=== PATIENT | male | born 1935 | race Caucasian/White ===

== ENCOUNTER 2016-05-20 05:21 | Inpatient (IN) | payer MEDICARE ==
[2016-05-20 05:36] VITALS: RESP 16
--- NOTE | 2016-05-20 05:45 | ED ---
General Adult HPI - General Chief complaint: Dizziness Stated complaint: DIZZY Time Seen by Provider: 05/20/16 05:38 Source: patient, RN notes reviewed, old records reviewed Mode of arrival: EMS Limitations: no limitations - History of Present Illness Initial comments: This is a 72-year-old male presenting here today complaining of dizziness, weakness - Related Data Home Medications Medication Instructions Recorded Confirmed Aspirin [Adult Low Dose Aspirin EC] 81 mg PO 09/25/15 Atorvastatin [Lipitor] 20 mg PO DAILY 09/25/15 09/25/15 Ibuprofen [Motrin] 400 mg PO Q8HR PRN 09/25/15 09/25/15 Metoprolol Succinate [Toprol XL] 50 mg PO DAILY 09/25/15 09/25/15 amLODIPine [Norvasc] 10 mg PO DAILY 09/25/15 09/25/15 Previous Rx's Medication Instructions Recorded Dexamethasone 0.75 mg PO DAILY #12 tablet 09/25/15 Hydrocodone/Acetaminophen [[place] 1 each PO Q6HR PRN #30 tab 09/25/15 5-325] Allergies Allergy/AdvReac Type Severity Reaction Status Date / Time No Known Allergies Allergy Verified 09/25/15 15:59 Review of Systems ROS Statement: Those systems with pertinent positive or pertinent negative responses have been documented in the HPI. ROS Other: All systems not noted in ROS Statement are negative. Past Medical History Past Medical History: Cancer, Hypertension, Osteoarthritis (OA) History of Any Multi-Drug Resistant Organisms: None Reported Past Surgical History: Hernia Repair, Joint Replacement, Prostate Surgery Additional Past Surgical History / Comment(s): hip and knee Past Psychological History: No Psychological Hx Reported Smoking Status: Never smoker Past Alcohol Use History: Occasional Past Drug Use History: None Reported General Exam Limitations: no limitations General appearance: alert, in no apparent distress Head exam: Present: atraumatic, normocephalic, normal inspection Eye exam: Present: normal appearance, PERRL, EOMI. Absent: scleral icterus, conjunctival injection, periorbital swelling ENT exam: Present: normal exam, mucous membranes moist Neck exam: Present: normal inspection. Absent: tenderness, meningismus, lymphadenopathy Respiratory exam: Present: normal lung sounds bilaterally. Absent: respiratory distress, wheezes, rales, rhonchi, stridor Cardiovascular Exam: Present: regular rate, normal rhythm, normal heart sounds. Absent: systolic murmur, diastolic murmur, rubs, gallop, clicks GI/Abdominal exam: Present: soft, normal bowel sounds. Absent: distended, tenderness, guarding, rebound, rigid Extremities exam: Present: normal inspection, full ROM, normal capillary refill. Absent: tenderness, pedal edema, joint swelling, calf tenderness Back exam: Present: normal inspection Neurological exam: Present: alert, oriented X3, CN II-XII intact Psychiatric exam: Present: normal affect, normal mood Skin exam: Present: warm, dry, intact, normal color. Absent: rash Course Vital Signs 05/20/16 05/20/16 05:34 06:37 Temperature 97.9 F Pulse Rate 75 61 Respiratory 16 16 Rate Blood Pressure 129/79 124/59 O2 Sat by Pulse 94 L 95 Oximetry - Reevaluation(s) Reevaluation #1: 05/20/16 06:48 Patient attempted ambulation, unable to ambulate without severe dizziness tipping the side, patient unable to take one step by himself EKG Findings - EKG Comments: EKG Findings:: EKG shows no signs rhythm rate of 71, MS 150, QRS 08, QTC 434 Medical Decision Making - Medical Decision Making [facility] for evaluation of vertiginous symptoms, ataxia. Patient has normal CAT scan, normal cerebellar testing is ataxic on exam. Unable to walk. Patient will be admitted for neurological testing and evaluation, continued monitoring of ataxia - Lab Data Result diagrams: 05/20/16 06:00 05/20/16 06:00 Lab Results 05/20/16 05/20/16 05/20/16 Range/Units 06:00 06:00 06:00 WBC 9.5 (3.8-10.6) k/uL RBC 4.98 (4.30-5.90) m/uL Hgb 14.8 (13.0-17.5) gm/dL Hct 46.4 (39.0-53.0) % MCV 93.0 (80.0-100.0) fL MCH 29.8 (25.0-35.0) pg MCHC 32.0 (31.0-37.0) g/dL RDW 14.2 (11.5-15.5) % Plt Count 365 (150-450) k/uL Neutrophils % 70 % Lymphocytes % 11 % Monocytes % 11 % Eosinophils % 6 % Basophils % 1 % Neutrophils # 6.6 (1.3-7.7) k/uL Lymphocytes # 1.0 (1.0-4.8) k/uL Monocytes # 1.1 H (0-1.0) k/uL Eosinophils # 0.6 (0-0.7) k/uL Basophils # 0.1 (0-0.2) k/uL PT 11.0 (9.0-12.0) sec INR 1.1 (<1.1) APTT 25.8 (22.0-30.0) sec Sodium 143 (137-145) mmol/L Potassium 4.4 (3.5-5.1) mmol/L Chloride 104 (98-107) mmol/L Carbon Dioxide 27 (22-30) mmol/L Anion Gap 12 mmol/L BUN 24 H (9-20) mg/dL Creatinine 0.87 (0.66-1.25) mg/dL Est GFR (MDRD) Af Amer >60 (>60 ml/min/1.73 sqM) Est GFR (MDRD) Non-Af >60 (>60 ml/min/1.73 sqM) Glucose 113 H (74-99) mg/dL Calcium 9.8 (8.4-10.2) mg/dL Phosphorus 3.2 (2.5-4.5) mg/dL Magnesium 1.9 (1.6-2.3) mg/dL Total Bilirubin 0.9 (0.2-1.3) mg/dL AST 23 (17-59) U/L ALT 28 (21-72) U/L Alkaline Phosphatase 89 (38-126) U/L Total Protein 7.7 (6.3-8.2) g/dL Albumin 4.3 (3.5-5.0) g/dL - Radiology Data Radiology results: report reviewed (CT brain is negative for acute disease), image reviewed Disposition Clinical Impression: Cerebrovascular accident, Ataxia Disposition: ADMITTED IP TO THIS [facility] Condition: Serious Referrals: Amanda Saldana DO [Primary Care Provider] - 1-2 days
[2016-05-20] MEDS ORDERED: ONDANSETRON 4 MG/2 ML VIAL IVP STA (05:50)
[2016-05-20] MEDS ORDERED: SODIUM CHLORIDE 0.9% 1,000 ML IV STA (05:50)
[2016-05-20] MEDS ORDERED: DIAZEPAM 5 MG/ML 2 ML SYRINGE IVP STA (05:51)
[2016-05-20 06:23] LABS: Basophils # (A) 0.1 k/uL (0-0.2); Basophils % (A) 1 %; CH 29.9; CHCM 32.3; Eosinophils # (A) 0.6 k/uL (0-0.7); Eosinophils % (A) 6 %; HCT 46.4 % (39.0-53.0); HDW 2.22; HGB 14.8 gm/dL (13.0-17.5); Luc # (Auto) 0.19; Luc % (Auto) 2; Lymphocytes % (A) 11 %; MCH 29.8 pg (25.0-35.0); Mean Platelet Volume 7.4; Monocytes # (A) 1.1 k/uL (0-1.0); Monocytes % (A) 11 %; Neutrophils # (A) 6.6 k/uL (1.3-7.7); Neutrophils % (A) 70 %; RBC 4.98 m/uL (4.30-5.90); RDW 14.2 % (11.5-15.5); WBC 9.5 k/uL (3.8-10.6); WBC (Perox) 9.14
[2016-05-20 06:32] LABS: ALT 28 U/L (21-72); AST 23 U/L (17-59); Alkaline Phosphatase 89 U/L (38-126); Anion Gap 12 mmol/L; Blood Urea Nitrogen 24 mg/dL (9-20); Calcium 9.8 mg/dL (8.4-10.2); Carbon Dioxide 27 mmol/L (22-30); Chloride 104 mmol/L (98-107); Glucose 113 mg/dL (74-99); Magnesium 1.9 mg/dL (1.6-2.3); Non-African American GFR(MDRD) >60 (>60 ml/min/1.73 sqM); Phosphorous 3.2 mg/dL (2.5-4.5); Potassium 4.4 mmol/L (3.5-5.1); Sodium 143 mmol/L (137-145); Total Bilirubin 0.9 mg/dL (0.2-1.3); Total Protein 7.7 g/dL (6.3-8.2)
[2016-05-20 06:33] LABS: INR 1.1 (<1.1); Partial Thromboplastin Time 25.8 sec (22.0-30.0)
--- NOTE | 2016-05-20 06:35 | CT ---
EXAM: CT Head Without Intravenous Contrast. CLINICAL HISTORY: Reason: weakness TECHNIQUE: Axial computed tomography images of the head/brain without intravenous contrast. CTDI is 57.40 mGy and DLP is 1064.30 mGy-cm This CT exam was performed using one or more of the following dose reduction techniques: automated exposure control, adjustment of the mA and/or kV according to patient size, and/or use of iterative reconstruction technique. COMPARISON: No relevant prior studies available. FINDINGS: Brain: Mild generalized atrophy. Minimal presumed chronic small vessel ischemic changes in the periventricular white matter. No hemorrhage. Ventricles: Unremarkable. No ventriculomegaly. Bones/joints: No acute fracture. Vasculature: Intracranial atherosclerosis. While subtle, there appears to be mild relative prominence of the right cavernous ICA compared to the left, with perhaps slight asymmetry and/or smooth remodeling of the right side of the clivus (for example axial images 20 and 21). Sinuses: Unremarkable as visualized. No acute sinusitis. Mastoid air cells: Unremarkable as visualized. No mastoid effusion. IMPRESSION: 1. No acute intracranial abnormality or etiology of the patient's weakness detected. 2. Mild relative fullness of the right cavernous sinus compared to the left. While this may be related to vascular ectasia, an aneurysm or small juxtasellar lesion, e.g. an underlying adenoma or meningioma, is not entirely excluded either. This could be further assessed by sella protocol MRI without and with contrast and MRA, on a follow-up basis, if not previously known.
[2016-05-20] MEDS ORDERED: ASPIRIN 325 MG TAB PO STA (06:44)
[2016-05-20 06:55] LABS: Appearance,Urine Clear (Clear); Bilirubin,Urine Negative (Negative); Glucose,Urine (UA) Negative (Negative); Ketones,Urine Negative (Negative); Leukocyte Esterase,Urine Negative (Negative); Nitrite,Urine Negative (Negative); PH, Urine 5.5 (5.0-8.0); Protein,Urine Negative (Negative); Specific Gravity,Urine 1.013 (1.001-1.035); UA Billing (MACRO vs. MICRO) CHEM; Urobilinogen,Urine <2.0 mg/dL (<2.0)
[2016-05-20 07:02] LABS: Creatine Kinase 54 U/L (55-170)
[2016-05-20 07:15] LABS: Creatine Kinase MB 1.4 ng/mL (0.0-2.4); Troponin I <0.012 ng/mL (0.000-0.034)
--- NOTE | 2016-05-20 09:01 | US ---
EXAMINATION TYPE: US carotid duplex BILAT DATE OF EXAM: 05/20/2016 8:27 AM COMPARISON: NONE CLINICAL HISTORY: 80-year-old male evaluate for Stenosis. Dizziness per patient, unable to stand. TECHNIQUE: Duplex carotid ultrasound. Indirect Doppler criteria was utilized. FINDINGS: There is moderate atherosclerotic change at both bifurcations. EXAM MEASUREMENTS: RIGHT: Peak Systolic Velocity (PSV) cm/sec ----- Right CCA: 83.4 ----- Right ICA: 96.6 ----- Right ECA: 107.3 ICA/CCA ratio: 1.2 RIGHT: End Diastole cm/sec ----- Right CCA: 21.9 ----- Right ICA: 16.4 ----- Right ECA: 8.9 LEFT: Peak Systolic Velocity (PSV) cm/sec ----- Left CCA: 100.4 ----- Left ICA: 91.1 ----- Left ECA: 112.9 ICA/CCA ratio: 0.9 LEFT: End Diastole cm/sec ----- Left CCA: 19.7 ----- Left ICA: 24.1 ----- Left ECA: 12.8 VERTEBRALS (direction of flow): Right Vertebral: Antegrade Left Vertebral: Antegrade IMPRESSION: No hemodynamically significant stenosis appreciated in either internal carotid artery. Criteria for Assigning % of Stenosis / Diameter reduction (Estimation based on the indirect measurements of the internal carotid artery velocities (ICA PSV). 1. Normal (no stenosis)=ICA PSV < 125 cm/s: ratio < 2.0: ICA EDV<40 cm/s. 2. Less than 50% stenosis=ICA PSV < 125 cm/s: ratio < 2.0: ICA EDV<40 cm/s. 3. 50 to 69% stenosis=ICA PSV of 125 to 230 cm/s: ration 2.0 ? 4.0: ICA EDV 40-100 cm/s. 4. Greater than 70% stenosis to near occlusion= ICA PSV > 230 cm/s: ratio > 4.0: ICA EDV > 100 cm/s. 5. Near occlusion= ICA PSV velocities may be low or undetectable: variable ratio and ICA EDV. 6. Total occlusion=unable to detect flow.
[2016-05-20] MEDS: SODIUM CHLORIDE 0.9% 1,000 ML IV SCH ×2 (09:33→18:12)
[2016-05-20 09:38] VITALS: TEMP 96.4
[2016-05-20] MEDS ORDERED: DIAZEPAM 5 MG TAB PO STA ×2 (10:02→10:04)
[2016-05-20] MEDS ORDERED: MECLIZINE 25 MG TAB PO PRN (10:02)
[2016-05-20] MEDS ORDERED: methylPREDNISolone SOD SUCCI 125 MG/2 ML VIAL IV STA (10:12)
[2016-05-20] MEDS ORDERED: amLODIPine 10 MG TAB PO SCH (10:30)
[2016-05-20] MEDS ORDERED: METOPROLOL SUCCINATE (ER) 50 MG TAB.ER.24H PO SCH ×2 (10:30→21:00)
[2016-05-20 11:23] LABS: Glucose,Whole Blood 124 mg/dL (75-99)
[2016-05-20 11:28] VITALS: BMI 27.8
[2016-05-20] MEDS: INSULIN LISPRO (humaLOG) 300 UNIT/3 ML VIAL SQ SCH ×2 (12:50→18:24)
--- NOTE | 2016-05-20 12:53 | P.CONS ---
<Rashmi Tovar - Last Filed: 05/20/16 12:57> History of Present Illness - Reason for Consult Consult date: 05/20/16 Dizziness - History of Present Illness This is a 80-year-old male patient of Dr. Saldana with a past mental history of prostate cancer status post resection, hypertension, osteoarthritis. He last saw Dr. Saldana 2 months ago for medication refills. He denies any new medications. Patient states he has had dizziness that will come and go and usually lasts about one day but this time he has had it on 4 days and continues to worsen. He has had a evaluation before thought it was vertigo. He denies any lower or upper extremity weakness, headache, chest pain, double vision. He states that he couldn't stand and could not get to the bathroom. He states his dizziness even when he moves his head forward while he is sitting. He denies any other complaints and states he feels "awesome" if it were not for the dizziness. He underwent a CAT scan of the brain that showed no acute intracranial abnormality. Mild fullness of the right cavernous sinuses compared to the left. This may be related to vascular ectasia, and aneurysm or small juxtasellar lesion such as underlying adenoma or meningioma is not entirely excluded. Carotid ultrasound showed no hemodynamically significant stenosis. Patient was admitted to the selective care unit. MRI/MRA of the brain have been ordered and consult with neurology. Review of Systems All systems: negative Constitutional: Denies anorexia, Denies chills, Denies fatigue, Denies fever, Denies lethargy, Denies malaise, Denies night sweats, Denies poor appetite, Denies sweats, Denies weakness, Denies weight gain, Denies weight loss Eyes: right decreased vision, denies blurred vision, denies pain Ears, nose, mouth and throat: Reports vertigo, Denies dental pain, Denies dysphagia, Denies headache, Denies mouth pain, Denies sinus pain, Denies sore throat Cardiovascular: Denies chest pain, Denies decreased exercise tolerance, Denies dyspnea on exertion, Denies edema, Denies leg edema, Denies lightheadedness, Denies shortness of breath, Denies syncope Respiratory: Denies cough, Denies cough with sputum, Denies dyspnea, Denies excessive sputum, Denies hemoptysis, Denies home oxygen, Denies wheezing Gastrointestinal: Denies abdominal pain, Denies change in bowel habits, Denies diarrhea, Denies hematemesis, Denies hematochezia, Denies loss of appetite, Denies melena, Denies nausea, Denies vomiting Genitourinary: Denies dysuria, Denies hematuria, Denies urinary frequency Musculoskeletal: Denies muscle weakness, Denies myalgias Integumentary: Denies pruritus, Denies rash Neurological: Denies numbness, Denies weakness Psychiatric: Denies anxiety, Denies depression Endocrine: Denies fatigue, Denies weight change Past Medical History Past Medical History: Cancer, Hyperlipidemia, Hypertension, Osteoarthritis (OA) Additional Past Medical History / Comment(s): Prostate cancer status post resection History of Any Multi-Drug Resistant Organisms: None Reported Past Surgical History: Hernia Repair, Joint Replacement, Prostate Surgery Additional Past Surgical History / Comment(s): Left hip and left knee arthroplasty, bilateral inguinal hernia repair, prostate resection for cancer, bilateral cataract removal and intraocular lens implants Past Anesthesia/Blood Transfusion Reactions: No Reported Reaction Past Psychological History: No Psychological Hx Reported Smoking Status: Never smoker Past Alcohol Use History: Occasional Additional Past Alcohol Use History / Comment(s): Patient is a lifelong nonsmoker. No medical marijuana, marijuana, street drug use. He occasionally has a beer or mixed drink. He lives at home with his . He does not have any DME in the home. Past Drug Use History: None Reported - Past Family History Father Family Medical History: COPD Additional Family Medical History / Comment(s): Father at age 76 from a brain hemorrhage. Mother Additional Family Medical History / Comment(s): Mother at age 82 from liver disease. Brother(s) Additional Family Medical History / Comment(s): He has one brother with history of bladder cancer Sister(s) Additional Family Medical History / Comment(s): He has 2 sisters. One from brain aneurysm and one with history of heart problems with the pacemaker. Son(s) Additional Family Medical History / Comment(s): Patient has 3 sons and one daughter with no major medical problems. Medications and Allergies Home Medications Medication Instructions Recorded Confirmed Type Aspirin [Adult Low Dose Aspirin EC] 81 mg PO DAILY 09/25/15 05/20/16 History Atorvastatin [Lipitor] 20 mg PO HS 09/25/15 05/20/16 History Ibuprofen [Motrin] 400 mg PO Q8HR PRN 09/25/15 05/20/16 History Metoprolol Succinate [Toprol XL] 50 mg PO HS 09/25/15 05/20/16 History amLODIPine [Norvasc] 10 mg PO DAILY 09/25/15 05/20/16 History ALPRAZolam [Xanax] 0.5 mg PO DAILY PRN 05/20/16 05/20/16 History Multivitamin [Men's Multi-Vitamin] 1 tab PO DAILY 05/20/16 05/20/16 History Allergies Allergy/AdvReac Type Severity Reaction Status Date / Time No Known Allergies Allergy Verified 05/20/16 12:27 Physical Exam Vitals: Vital Signs Temp Pulse BP Pulse Ox 05/20/16 07:44 96.4 F L 72 144/70 99 Intake and Output 05/19/16 05/20/16 05/20/16 22:59 06:59 14:59 Other: Weight 92.986 kg Patient Weight 05/21/16 06:59 Weight 92.986 kg Gen: This is a 80-year-old male. He is sitting up in a bed and appears to be in no acute distress. He does have significant difficulty with ambulating due to dizziness. Gait is unsteady. HEENT: Head is atraumatic, normocephalic. Pupils equal, round. Sclerae is anicteric. NECK: Supple. No JVD. No lymphadenopathy. No thyromegaly. LUNGS: Clear to auscultation. No wheezes or rhonchi. No intercostal retractions. HEART: Regular rate and rhythm. No murmur. ABDOMEN: Soft. Bowel sounds are present. No masses. No tenderness. EXTREMITIES: No pedal edema. No calf tenderness. NEUROLOGICAL: Patient is awake, alert and oriented x3. Cranial nerves 2 through 12 are grossly intact. Results CBC & Chem 7: 05/20/16 06:00 05/20/16 06:00 Labs: Abnormal Lab Results - Last 24 Hours (Table) 05/20/16 Range/Units 11:17 POC Glucose (mg/dL) 124 H (75-99) mg/dL Assessment and Plan Plan: 1. Dizziness, possible vertigo with abnormal finding on brain CAT scan. MRI/ MRA of the brain have been ordered. Consult with neurology. Continue aspirin 325 mg daily. Solu-Medrol 125 mg 1 and then 60 mg every 6 hours. Meclizine 25 mg 3 times daily as needed ordered. 2. Hypertension. Continue amlodipine 10 mg daily. 3. Hyperlipidemia. Continue Lipitor 20 mg at bedtime. 4. Gastrointestinal prophylaxis. Pepcid. 5. DVT prophylaxis. Lovenox. 6. History of prostate cancer, stable. Patient will be admitted to the hospital for a minimum of 2 night stay. Discharge plan: Return home Impression and plan of care have been directed as dictated by the signing physician. Rashmi Tovar nurse practitioner acting as scribe for signing physician. CC: Dr. Amanda Saldana Time with Patient: Greater than 30 <Genny Ratliff - Last Filed: 05/27/16 15:04> History of Present Illness - History of Present Illness addendum: patient was transfered to [facility] neurology service for cavernous sinus lesion seen on mri with symtpoms of ataxia with nystagmus, vestibular pathlology is not high on the differential making Dr Chacon suspicious about this lesion, neurosurgeon at [facility] will be consulted on transfer there for higher level of care Results CBC & Chem 7: 05/20/16 06:00 05/20/16 06:00 Assessment and Plan Plan: transfered to [facility], NEUROLOGY SERVICE WITH CONSULT TO NEUROSURGEON CAVERNOUS SINUS LESION WITH ATAXIA. SEE AVOBE
--- NOTE | 2016-05-20 12:54 | MR ---
EXAMINATION TYPE: MR brain wo/w con, MR angio head wo con DATE OF EXAM: 05/20/2016 12:11 PM COMPARISON: NONE HISTORY: 80-year-old male Weakness, dizziness TECHNIQUE: Multiplanar, multisequence images of the brain and brainstem were acquired before and aft er administration of 18 ml IV MultiHance. Diffusion weighted imaging was performed. Additional high -resolution 3-D [id number] imaging of the [place] was performed. Rotational 3-D reconst ructions were generated on a dedicated independent workstation. FINDINGS: MRI: No evidence for acute infarction, hemorrhage, mass, mass effect, midline shift, herniation, effacemen t of basal cisterns, or extra-axial fluid collection. There is mild generalized supratentorial volume loss. Major intracranial flow voids are intact. T2/FLAIR weighted sequences show mild scattered periventricular and deep white matter bright signal f oci, nonspecific, likely relating to chronic small vessel ischemic disease. Midline structures demonstrate normal morphology. No sellar or suprasellar lesion is seen. The crani ocervical junction is normal. Post contrast images demonstrate no evidence of pathologic enhancement. Mild mucosal thickening ethmoid air cells. Partial opacification of anterior mastoid air cells on bot h sides likely retained secretions. MRA: There is asymmetric ectasia and tortuosity of the right intracranial ICA at the junction of the lacer um and cavernous portions with a diameter of 7 mm versus 5 mm on the contralateral side. This appears to account for the asymmetric cavernous sinus fullness seen on CT. Otherwise, no aneurysm, significant stenosis, or arterial occlusion is seen. IMPRESSION: 1. No acute intracranial abnormality seen. 2. Mild atrophy and mild nonspecific scattered T2 bright white matter change, likely representing mil d burden of chronic small vessel ischemic disease. 3. Asymmetric ectasia and tortuosity of the right intracranial ICA at the junction of the lacerum and cavernous portions with a diameter of 7 mm. This appears to account for the asymmetric cavernous sin us fullness seen on CT. A 12 month follow-up MRA can be considered to reassess. Otherwise, no aneurys m or parasellar mass.
--- NOTE | 2016-05-20 15:13 | ECHOF ---
Referral Reason:Thrombus MEASUREMENTS -------- HEIGHT: 180.3 cm WEIGHT: 93.0 kg BP: 124/59 IVSd: 1.2 cm (0.6 - 1.1) LVIDd: 4.0 cm (3.9 - 5.3) LVPWd: 1.0 cm (0.6 - 1.1) IVSs: 1.7 cm LVIDs: 2.1 cm LVPWs: 2.2 cm Ao Diam: 3.8 cm (2.0 - 3.7) AV Cusp: 1.9 cm (1.5 - 2.6) LA Diam: 4.5 cm (2.7 - 3.8) MV EXCURSION: 16.312 mm (> 18.000) MV EF SLOPE: 93 mm/s (70 - 150) EPSS: 1.0 cm MV E Slava: 0.77 m/s MV DecT: 304 ms MV A Slava: 0.74 m/s MV E/A Ratio: 1.04 RAP: 5.00 mmHg RVSP: 11.07 mmHg FINDINGS -------- Sinus rhythm. This was a technically adequate study. There is borderline concentric left ventricular hypertrophy. Overall left ventricular systolic function is normal with, an EF between 55 - 60 %. The right ventricle is normal in size and function. The left atrium is mildly dilated. The right atrium is normal in size. Aortic valve is trileaflet and is mildly thickened. The mitral valve leaflets are mildly thickened. Mild mitral regurgitation is present. Mild tricuspid regurgitation present. The right ventricular systolic pressure, as measured by Doppler, is 11.07mmHg. Pulmonic valve appears structurally normal. The aortic root size is normal. The pericardium is normal. CONCLUSIONS -------- 1. Sinus rhythm. 2. Mild mitral regurgitation is present. 3. Mild tricuspid regurgitation present. 4. The right ventricular systolic pressure, as measured by Doppler, is 11.07mmHg. 5. Pulmonic valve appears structurally normal. 6. The aortic root size is normal. 7. The pericardium is normal. 8. This was a technically adequate study. 9. There is borderline concentric left ventricular hypertrophy. 10. Overall left ventricular systolic function is normal with, an EF between 55 - 60 %. 11. The right ventricle is normal in size and function. 12. The left atrium is mildly dilated. 13. The right atrium is normal in size. 14. Aortic valve is trileaflet and is mildly thickened. 15. The mitral valve leaflets are mildly thickened. [employer] ARCHITECT: Zoe Whittaker RDCS
[2016-05-20 16:18] VITALS: BP 150/72; PULSE 118
[2016-05-20 16:26] LABS: Glucose,Whole Blood 156 mg/dL (75-99)
[2016-05-20] MEDS ORDERED: methylPREDNISolone SOD SUCCI 125 MG/2 ML VIAL IV SCH (17:00)
--- NOTE | 2016-05-20 18:49 | P.CNNES ---
History of Present Illness Consult date: 05/20/16 Reason for Consult: Patient admitted with dizziness and gait ataxia. History of Present Illness: This patient is a 80-year-old right-handed white male who was brought in today by EMS to the emergency room at [facility] for evaluation of extreme vertigo and gait ataxia. According to the patient his symptoms of vertigo started 4 days ago. He has a history of recurrent vertigo for the past 2 years and the symptoms usually subside after one to 2 days. He does not have to take any specific medication for these episodes. According to his who is at bedside he experiences 3 or 4 episodes a year. 4 days ago his symptoms began in which she felt vertiginous and off balance. He just did not feel well. This morning at 4 AM he awoke and could not get out of bed. His tried to assist him to sit on the side of the bed and he had a fall back into bed due to severe symptoms of vertigo. He states that he was off balance and did have some true spinning vertigo as well. He had some nausea but no vomiting. The tried again to get a monitor bed but was unsuccessful. The immediately called EMS who arrived and brought him to the emergency room at [facility] for evaluation. He was seen in the ER by Dr. Garza we evaluated him. He was advised to undergo a computed tomography scan of the brain which was completed. Due to the severity of his symptoms and unsteadiness he was given 1 dose of Valium in the ER. He underwent computed tomography scan of the brain which revealed no acute intracranial abnormality. There was finding of fullness in the right cavernous sinus. Radiology recommended MRI and MRA for further evaluation. Differential diagnosis included aneurysm versus meningioma or adenoma. The patient was subsequently admitted to the hospital. He underwent a carotid Doppler ultrasound today which revealed no significant carotid artery stenosis. According to his he is slightly improved in that he is able to sit on the side of the bed. He is still unable to ambulate due to unsteadiness and gait ataxia. The patient denied any severe headache but does feel something just not right. He did have some nausea but no significant vomiting. We did request HEENT consultation today with Dr. Castaneda and apparently this consult was canceled. We have reviewed the results of the studies that have been completed thus far including the MRI of the brain, MRA of the brain, computed tomography scan of the brain results, and carotid Doppler results with the patient and his in detail. He does still feel some degree of balance and disequilibrium which is still of some concern. We have reviewed the results of the MRI and MRA today with Dr. Ratliff who is his admitting physician. 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 The patient also recollects that he does get tinnitus involving his right ear. This may also be related to this MRA finding. The patient seems to have responded to the Valium earlier today. We would recommend that he should also have an ENT consultation at [facility]. We have discussed all of the patient's clinical neurological findings and test results with Dr. Ratliff. She is in full agreement and arrangements will be made today to transfer the patient to [facility] for further Neurosurgical and ENT evaluations. The patient's neurological examination does not reveal significant nystagmus on gaze testing. Finger-nose testing also seems to be intact. We have gone over the test results in detail with the patient and his . The is very concerned and would like to proceed with further evaluation at [facility]. She is in full agreement with our current recommendations. Case was discussed at length today with Dr. Ratliff. We will await further orders and await any further instructions from the transfer team at [facility]. This patient's overall prognosis at this time remains very guarded. Review of Systems Constitutional: Denies chills, Denies fever Eyes: denies blurred vision, denies pain Ears: right: tinnitus Ears, nose, mouth and throat: Reports vertigo, Denies headache, Denies sore throat Cardiovascular: Reports lightheadedness, Denies chest pain, Denies shortness of breath Respiratory: Denies cough Gastrointestinal: Denies abdominal pain, Denies diarrhea, Denies nausea, Denies vomiting Musculoskeletal: Denies myalgias Integumentary: Denies pruritus, Denies rash Neurological: Reports ataxia, Reports gait dysfunction, Reports headaches, Reports motor disturbance, Denies numbness, Denies weakness Psychiatric: Denies anxiety, Denies depression Endocrine: Denies fatigue, Denies weight change Past Medical History Past Medical History: Cancer, Hyperlipidemia, Hypertension, Osteoarthritis (OA) Additional Past Medical History / Comment(s): Prostate cancer status post resection History of Any Multi-Drug Resistant Organisms: None Reported Past Surgical History: Hernia Repair, Joint Replacement, Prostate Surgery Additional Past Surgical History / Comment(s): Left hip and left knee arthroplasty, bilateral inguinal hernia repair, prostate resection for cancer, bilateral cataract removal and intraocular lens implants Past Anesthesia/Blood Transfusion Reactions: No Reported Reaction Past Psychological History: No Psychological Hx Reported Smoking Status: Never smoker Past Alcohol Use History: Occasional Additional Past Alcohol Use History / Comment(s): Patient is a lifelong nonsmoker. No medical marijuana, marijuana, street drug use. He occasionally has a beer or mixed drink. He lives at home with his . He does not have any DME in the home. Past Drug Use History: None Reported - Past Family History Father Family Medical History: COPD Additional Family Medical History / Comment(s): Father at age 76 from a brain hemorrhage. Mother Additional Family Medical History / Comment(s): Mother at age 82 from liver disease. Brother(s) Additional Family Medical History / Comment(s): He has one brother with history of bladder cancer Sister(s) Additional Family Medical History / Comment(s): He has 2 sisters. One from brain aneurysm and one with history of heart problems with the pacemaker. Son(s) Additional Family Medical History / Comment(s): Patient has 3 sons and one daughter with no major medical problems. Medications and Allergies Home Medications Medication Instructions Recorded Confirmed Type Aspirin [Adult Low Dose Aspirin EC] 81 mg PO DAILY 09/25/15 05/20/16 History Atorvastatin [Lipitor] 20 mg PO HS 09/25/15 05/20/16 History Ibuprofen [Motrin] 400 mg PO Q8HR PRN 09/25/15 05/20/16 History Metoprolol Succinate [Toprol XL] 50 mg PO HS 09/25/15 05/20/16 History amLODIPine [Norvasc] 10 mg PO DAILY 09/25/15 05/20/16 History ALPRAZolam [Xanax] 0.5 mg PO DAILY PRN 05/20/16 05/20/16 History Multivitamin [Men's Multi-Vitamin] 1 tab PO DAILY 05/20/16 05/20/16 History Allergies Allergy/AdvReac Type Severity Reaction Status Date / Time No Known Allergies Allergy Verified 05/20/16 12:27 Physical Examination - Vital Signs Vital Signs: Vital Signs Temp Pulse BP Pulse Ox 05/20/16 07:44 96.4 F L 72 144/70 99 Intake and Output 05/19/16 05/20/16 05/20/16 22:59 06:59 14:59 Other: Weight 92.986 kg Patient Weight 05/21/16 06:59 Weight 92.986 kg - Constitutional General appearance: average body habitus, cooperative - EENT EENT: PERRL, mucous membranes moist - Respiratory Respiratory: lungs clear, normal breath sounds - Cardiovascular Cardiovascular: regular rate, normal S1, normal S2 Extremities: no peripheral edema bilaterally - Gastrointestinal Gastrointestinal: normoactive bowel sounds - Integumentary Integumentary: normal - Neurologic Cranial nerve examination: PERRL, EOMI, VFF, V1/V2/V3 grossly intact, face symmetric, tongue midline, intact gag reflex, intact corneal reflex, normal palatal elevation Speech examination: intact Sensorimotor examination: intact Detailed motor examination: grossly full strength in all extremities Motor examination - right side: 5/5: biceps, triceps, wrist flexion, wrist extension, activated sludge attendant, hip flexors, knee extensors, dorsiflexion, toe extension (EHL) , plantarflexion Motor examination - left side: 5/5: biceps, triceps, wrist flexion, wrist extension, activated sludge attendant, hip flexors, knee extensors, dorsiflexion, toe extension (EHL) , plantarflexion Detailed sensory examination: intact Reflex and gait examination: ataxic gate Reflexes: 1+: ankle, bicep, knee, tricep - Musculoskeletal Musculoskeletal: no pain - Psychiatric Psychiatric: mood/affect appropriate, cooperative Results - Laboratory Findings CBC and BMP: 05/20/16 06:00 05/20/16 06:00 Abnormal Lab Findings: Abnormal Labs 05/20/16 11:17 POC Glucose (mg/dL) 124 H Assessment and Plan (1) Cavernous sinus syndrome Status: Acute Code(s): I67.6 - NONPYOGENIC THROMBOSIS OF INTRACRANIAL VENOUS SYSTEM (2) Ataxic gait Status: Acute Code(s): R26.0 - ATAXIC GAIT (3) Tinnitus Status: Acute Code(s): H93.19 - TINNITUS, UNSPECIFIED EAR (4) Benign paroxysmal positional vertigo Status: Acute Code(s): H81.10 - BENIGN PAROXYSMAL VERTIGO, UNSPECIFIED EAR (5) History of prostate cancer Status: Acute Code(s): Z85.46 - PERSONAL HISTORY OF MALIGNANT NEOPLASM OF PROSTATE Plan: This patient is a 80-year-old right-handed white male who apparently 4 days ago began experiencing symptoms of moderate to severe vertigo. This morning at 4 AM he awoke his stating that he could not move. She tried to help him sit up on the side of the bed and he fell back into bed. He was complaining of severe vertigo and disequilibrium. He did have some nausea but no vomiting. was unable to assist him in immediately called EMS. Patient was brought into the emergency room at [facility] for further evaluation. He was seen in the ER by Dr. Garza. He underwent a computed tomography scan of the brain which revealed a fullness in the right cavernous sinus. He was recommended to undergo MRI and MRA of the brain which is completed. Results are as noted above. Patient was given a dose of Valium in the ER. This did seem to help some of his symptoms but he still feels very much ataxic. Apparently in the ER and at home he was severely ataxic unable to stand. was unable to help him in any way. He was subsequently admitted to the hospital. His MRA does reveal an abnormality in the right internal carotid artery near the right cavernous sinus. This vascular lesion measures 7 mm in size. Exact etiology is unknown. Possibility includes a cavernous sinus aneurysm. Patient does experience tinnitus in his right ear as well. Given the acute onset of the ataxia and vertigo we have recommended further evaluation with the neurosurgical and ENT consultation. Case was discussed at length with the patient and his at bedside. There were updated on all of the test results. They're both in full agreement to move forward with transfer of this patient to a tertiary center such as [facility] for neurosurgical and ENT evaluation. Case was discussed today with Dr. Ratliff over the phone. We reviewed the results of all of his studies including MRI and MRA results. She is in full agreement and she will make arrangements for transfer this patient to [facility] as soon as possible today. His overall prognosis at this time remains very guarded. Time with Patient: Greater than 30
[2016-05-20] MEDS ORDERED: ATORVASTATIN 20 MG TAB PO SCH (21:00)
[2016-05-21] MEDS ORDERED: FAMOTIDINE 20 MG TAB PO SCH (09:00)
[2016-05-21] MEDS ORDERED: NON-FORMULARY DRUG (Aspirin [Adult Low Dose Aspirin Ec] 81 MG) PO SCH (09:00)
[2016-05-21] MEDS ORDERED: ASPIRIN 325 MG TAB PO SCH (09:00)
[2016-05-21] MEDS ORDERED: ENOXAPARIN 40 MG/0.4 ML SYRINGE SQ SCH (09:00)
[2016-05-21] MEDS ORDERED: MULTIVITAMINS, THERA 1 EACH TAB PO SCH (12:00)
== END 2016-05-20 20:30 | disposition short-term general hospital (02) | DRG 93 ==
LOC: EC 05:21 → 6SEL 06:47
PROVIDERS: ADMIT Family Medicine; ATTEND Family Medicine
DX: I67.6 Nonpyogenic thrombosis of intracranial venous system (principal); I10 Essential (primary) hypertension; E78.5 Hyperlipidemia, unspecified; H81.10 Benign paroxysmal vertigo, unspecified ear; H93.11 Tinnitus, right ear; R27.0 Ataxia, unspecified; M19.91 Primary osteoarthritis, unspecified site; Z85.46 Personal history of malignant neoplasm of prostate; Z98.42 Cataract extraction status, left eye; Z98.41 Cataract extraction status, right eye; Z96.1 Presence of intraocular lens; Z90.79 Acquired absence of other genital organ(s); Z96.653 Presence of artificial knee joint, bilateral; Z79.82 Long term (current) use of aspirin; Z79.899 Other long term (current) drug therapy
CPT/HCPCS: 36415; 70450; 70544; 70553; 80053; 81003; 82550; 82553; 83036; 83735; 84100; 84484; 85025; 85610; 85730; 87086; 93005; 93306; 93880; 96374; 96375; 99285

== ENCOUNTER → 2018-08-22 | Outpatient (CLI) | payer MEDICARE ==
[2018-08-22 17:17] LABS: HCT 48.2 % (39.0-53.0); HGB 15.3 gm/dL (13.0-17.5); MCH 29.4 pg (25.0-35.0); MCHC 31.8 g/dL (31.0-37.0); MCV 92.5 fL (80.0-100.0); Mean Platelet Volume 7.1; Platelet Count 542 k/uL (150-450); RBC 5.21 m/uL (4.30-5.90); RDW 14.3 % (11.5-15.5); WBC 10.6 k/uL (3.8-10.6)
[2018-08-23 00:20] LABS: African American GFR (CKD) 54.2 (60.0-200.0); Albumin 4.5 g/dL (3.80-4.90); Albumin/Globulin Ratio 1.96 (1.60-3.17); Anion Gap 14.1 mmol/L (4.00-12.00); BUN/Creat Ratio 20.71 Ratio (12.00-20.00); Calcium 9.9 mg/dL (8.7-10.3); Carbon Dioxide 22.9 mmol/L (21.6-31.8); Globulin 2.3 g/dL (1.6-3.3); Potassium 5.1 mmol/L (3.5-5.5); Total Bilirubin 0.4 mg/dL (0.3-1.2); Total Protein 6.8 g/dL (6.2-8.2)
== END | disposition home or self-care (01) ==
LOC: LABWHC1 16:56
PROVIDERS: ATTEND Physician Assistant
DX: L29.9 Pruritus, unspecified (principal); L30.9 Dermatitis, unspecified
CPT/HCPCS: 36415; 80053; 85027

== ENCOUNTER → 2018-10-31 | Outpatient (CLI) | payer MEDICARE ==
--- NOTE | 2018-10-31 10:08 | US ---
EXAMINATION TYPE: US carotid duplex BILAT DATE OF EXAM: 10/31/2018 COMPARISON: CLINICAL HISTORY: I77.89 DISORDER OF ARTERIES AND ARTERIOLES. HTN controlled with meds EXAM MEASUREMENTS: RIGHT: Peak Systolic Velocity (PSV) cm/sec ----- Right CCA: 92.7 ----- Right ICA: 93.0 ----- Right ECA: 101.7 ICA/CCA ratio: 1.0 RIGHT: End Diastole cm/sec ----- Right CCA: 24.1 ----- Right ICA: 21.5 ----- Right ECA: 11.1 LEFT: Peak Systolic Velocity (PSV) cm/sec ----- Left CCA: 86.4 ----- Left ICA: 77.6 ----- Left ECA: 91.8 ICA/CCA ratio: 0.9 LEFT: End Diastole cm/sec ----- Left CCA: 14.9 ----- Left ICA: 14.9 ----- Left ECA: 0.0 VERTEBRALS (direction of flow): Right Vertebral: Antegrade Left Vertebral: Antegrade Rhythm: Normal IMPRESSION: Plaque seen in bilateral bulbs, bilateral wall thickening, no elevated velocities or sign ificant stenosis. Criteria for Assigning % of Stenosis / Diameter reduction (Estimation based on the indirect measurements of the internal carotid artery velocities (ICA PSV). 1. Normal (no stenosis)=ICA PSV < 125 cm/s: ratio < 2.0: ICA EDV<40 cm/s. 2. Less than 50% stenosis=ICA PSV < 125 cm/s: ratio < 2.0: ICA EDV<40 cm/s. 3. 50 to 69% stenosis=ICA PSV of 125 to 230 cm/s: ration 2.0 ? 4.0: ICA EDV 40-100 cm/s. 4. Greater than 70% stenosis to near occlusion= ICA PSV > 230 cm/s: ratio > 4.0: ICA EDV > 100 cm/s. 5. Near occlusion= ICA PSV velocities may be low or undetectable: variable ratio and ICA EDV. 6. Total occlusion=unable to detect flow.
== END | disposition home or self-care (01) ==
LOC: RADUSWWP 09:32
PROVIDERS: ATTEND Family Medicine
DX: I70.90 Unspecified atherosclerosis (principal)
CPT/HCPCS: 93880

== ENCOUNTER → 2020-10-28 | Outpatient (CLI) | payer MEDICARE ==
--- NOTE | 2020-10-29 07:07 | US ---
EXAMINATION TYPE: US carotid duplex BILAT DATE OF EXAM: 10/28/2020 COMPARISON: 10/31/2018 CLINICAL HISTORY: I77.89 DISORDERS OF ARTERIES AND ARTERIOLES. HTN controlled with meds. No hx of TI A. EXAM MEASUREMENTS: RIGHT: Peak Systolic Velocity (PSV) cm/sec ----- Right CCA: 75.6 ----- Right ICA: 73.5 ----- Right ECA: 124.2 ICA/CCA ratio: 1.0 RIGHT: End Diastole cm/sec ----- Right CCA: 16.2 ----- Right ICA: 13.1 ----- Right ECA: 9.5 LEFT: Peak Systolic Velocity (PSV) cm/sec ----- Left CCA: 82.7 ----- Left ICA: 81.7 ----- Left ECA: 110.8 ICA/CCA ratio: 1.0 LEFT: End Diastole cm/sec ----- Left CCA: 7.6 ----- Left ICA: 20.6 ----- Left ECA: 6.3 VERTEBRALS (direction of flow): Right Vertebral: Antegrade Left Vertebral: Antegrade Rhythm: Arrhythmia Plaque seen in bilateral bulbs. No significant stenosis. Left proximal CCA elevated velocity. IMPRESSION: 1. Bilateral atherosclerotic changes with no significant hemodynamic stenosis. NASCET criteria was used in interpretation of this exam? Criteria for Assigning % of Stenosis / Diameter reduction (Estimation based on the indirect measurements of the internal carotid artery velocities (ICA PSV). 1. Normal (no stenosis)=ICA PSV < 125 cm/s: ratio < 2.0: ICA EDV<40 cm/s. 2. Less than 50% stenosis=ICA PSV < 125 cm/s: ratio < 2.0: ICA EDV<40 cm/s. 3. 50 to 69% stenosis=ICA PSV of 125 to 230 cm/s: ration 2.0 ? 4.0: ICA EDV 40-100 cm/s. 4. Greater than 70% stenosis to near occlusion= ICA PSV > 230 cm/s: ratio > 4.0: ICA EDV > 100 cm/s. 5. Near occlusion= ICA PSV velocities may be low or undetectable: variable ratio and ICA EDV. 6. Total occlusion=unable to detect flow.
== END | disposition home or self-care (01) ==
LOC: RADUSWWP 16:13
PROVIDERS: ATTEND Family Medicine
DX: I65.23 Occlusion and stenosis of bilateral carotid arteries (principal); I10 Essential (primary) hypertension
CPT/HCPCS: 93880

== ENCOUNTER → 2020-10-29 | Outpatient (CLI) | payer MEDICARE ==
[2020-10-29 20:09] LABS: HGB 15.9 g/dL (13.0-17.0); MCH 27.5 pg (27.0-32.0); MCHC 31.2 g/dL (32.0-37.0); MCV 88.1 fL (80.0-97.0); Mean Platelet Volume 9.9 fL (9.5-12.2); Platelet Count 516 X 10*3/uL (140-440); RBC 5.79 X 10*6/uL (4.40-5.60); RDW 14.4 % (11.5-14.5); WBC 8.39 X 10*3/uL (4.50-10.00)
[2020-10-29 20:44] LABS: Basophils # (A) 0.08 X 10*3/uL (0.00-0.10); Eosinophils # (A) 0.42 X 10*3/uL (0.04-0.35); Lymphocytes # (A) 1.06 X 10*3/uL (0.90-5.00); Lymphocytes % (A) 12.6 %; Monocytes % (A) 22.6 %; Neutrophils # (A) 4.89 X 10*3/uL (1.80-7.70); Neutrophils % (A) 58.3 %
[2020-10-30 06:00] LABS: African American GFR (CKD) 64.4 (60.0-200.0); Albumin 4.7 g/dL (3.80-4.90); Albumin/Globulin Ratio 1.52 (1.60-3.17); Anion Gap 12.2 mmol/L (4.00-12.00); BUN/Creat Ratio 21.67 Ratio (12.00-20.00); Calcium 9.9 mg/dL (8.7-10.3); Carbon Dioxide 26.8 mmol/L (21.6-31.8); Globulin 3.1 g/dL (1.6-3.3); Non-African American GFR(CKD) 55.6 (60.0-200.0); Potassium 5.2 mmol/L (3.5-5.5); Total Bilirubin 0.7 mg/dL (0.2-1.2); Total Protein 7.8 g/dL (6.2-8.2)
[2020-10-30 06:11] LABS: Hepatitis B Core IgM Non-Reactive (Non-Reactive); Hepatitis B Surface AB- Quant <3.5 mIU/mL; Hepatitis B Surface Antibody Non-Reactive (Non-Reactive); Hepatitis B Surface Antigen Non-Reactive (Non-Reactive); Hepatitis C IgG Antibody Non-Reactive (Non-Reactive)
== END | disposition home or self-care (01) ==
LOC: LABWHC1 13:01
DX: L30.9 Dermatitis, unspecified (principal)
CPT/HCPCS: 36415; 80053; 84443; 85025; 86705; 86706; 86803; 87340

== ENCOUNTER 2021-02-25 08:20 | Day surgery (SDC) | payer MEDICARE ==
[2021-02-23 11:07] VITALS: BMI 25.0
[~2021-02-25 08:20] MED LIST: LACTATED RINGERS 1,000 ML IV SCH; LIDOCAINE 1% (10MG/ML) FOR IV START INTRADERMA PRN
[2021-02-25 08:55] VITALS: TEMP 97
[2021-02-25] MEDS ORDERED: LIDOCAINE 1% INJ 10MG/ML (20 ML MDV) ONE (09:23)
[2021-02-25] MEDS ORDERED: PROPOFOL 10 MG/ML 20 ML VIAL IV ONE (09:23)
--- NOTE | 2021-02-25 10:13 | P.PCN ---
Date of Procedure: 02/25/21 Preoperative Diagnosis: Anemia Postoperative Diagnosis: Colon mass, hepatic flexure Colon polyp, descending colon Diverticulosis Hiatal hernia Procedure(s) Performed: EGD with biopsy Colonoscopy with polypectomy, biopsy, tattoo placement Anesthesia: MAC Surgeon: Rojelio Ta Pathology: other (Biopsy hepatic flexure colon mass, descending colon polyp, biopsies of antrum, duodenum, esophagus) Condition: stable Disposition: same day Indications for Procedure: 85-year-old male with recent finding of anemia presents for upper and lower endoscopy for further evaluation. Risks, benefits and alternatives were provided to the patient. Operative Findings: Mass versus lesion of the hepatic flexure Polyp of the descending colon Hiatal hernia Diverticulosis Description of Procedure: The patient was brought to the endoscopy suite and placed in left lateral decubitus position and adequate sedation was achieved using conscious sedation. A bite block was placed and an endoscope was placed in the oropharynx and advanced under endoscopic visualization. The endoscope was advanced through the esophagus into the stomach, through the gastric antrum and in through the pylorus. The third portion of the duodenum was visualized. The endoscope was then slowly withdrawn. The first portion of the duodenum was noted to have inflammatory changes. Biopsies were taken. The antrum was also noted to have mild inflammatory changes. Biopsies were taken. The gastric body distended normally and the gastric folds appeared normal and flattened with insufflation. A retroflexed view of the fundus and GE junction revealed a moderate sized hiatal hernia. The esophagus appeared endoscopically normal. Biopsies were taken. Excess air was removed and the scope was withdrawn. A digital rectal exam was performed and mild internal hemorrhoids were palpated. An endoscope was then placed in the rectum and advanced to the cecum was identified by landmarks including the appendiceal orifice and the ileocecal valve. The prep was good. The colonoscope was then slowly withdrawn, examining for any mucosal abnormalities. The cecum, ascending, transverse, descending and sigmoid colon were visualized adequately. Friable mass was noted in the hepatic flexure. Multiple biopsies were taken as this was not able to be removed with snare. The area surrounding this lesion was tattooed with Charo ink. An additional polyp was noted in the descending colon. This was removed with hot snare polypectomy. Retroflexion was performed in the rectum and internal hemorrhoids were visible. Excess air was removed, the colonoscope withdrawn and the procedure terminated. The patient was then transferred to the recovery unit in stable condition. Repeat colonoscopy should be performed based on pathology. Patient is to follow-up as an outpatient for further recommendations.
[2021-02-25 10:24] VITALS: BP 131/76; PULSE 76; RESP 16
== END 2021-02-25 10:54 | disposition home or self-care (01) ==
LOC: ORWHC2ENDO 08:20
PROVIDERS: ATTEND Surgery
DX: D64.9 Anemia, unspecified (principal); K57.90 Diverticulosis of intestine, part unspecified, without perforation or abscess without bleeding; K76.9 Liver disease, unspecified; D12.4 Benign neoplasm of descending colon; K44.9 Diaphragmatic hernia without obstruction or gangrene
CPT/HCPCS: 45385; 43239; 45381; 88305; J2001; J2704

== ENCOUNTER 2021-06-14 10:00 | Inpatient (IN) | payer MEDICARE ==
[~2021-06-14 10:00] MED LIST changes: +HEPARIN SODIUM,PORCINE/PF 5,000 UNIT/0.5 ML SYRINGE SQ PRN; +HYDROmorphone 0.5 MG/0.5 ML SYRINGE IVP PRN; -LACTATED RINGERS 1,000 ML IV SCH; +ONDANSETRON 4 MG/2 ML VIAL IVP PRN; +metroNIDAZOLE-NS PMX 500 MG in SALINE 1 100ML.BAG IVPB PRN
[2021-06-14] MEDS: LACTATED RINGERS 1,000 ML IV SCH ×4 (10:30→23:38)
[2021-06-14 10:50] LABS: Potassium 4.5 mmol/L (3.5-5.1)
[2021-06-14] MEDS ORDERED: MIDAZOLAM 2 MG/2 ML VIAL IVP ONE (11:05)
[2021-06-14] MEDS ORDERED: DEXAMETHASONE SOD PHOSPHATE 4 MG/ML 1 ML VIAL IVP ONE (11:16)
[2021-06-14] MEDS ORDERED: PROPOFOL 10 MG/ML 20 ML VIAL IV ONE (11:29)
[2021-06-14] MEDS ORDERED: NEOSTIGMINE 1 MG/ML 10 ML VIAL ONE (11:29)
[2021-06-14] MEDS ORDERED: ROCURONIUM 10 MG/ML (5 ML VIAL) IV ONE (11:29)
[2021-06-14] MEDS ORDERED: SUCCINYLCHOLINE CHLORIDE 100 MG/5 ML SYR IV ONE (11:29)
[2021-06-14] MEDS ORDERED: ePHEDrine 50 MG/ML 1 ML VIAL ONE (11:29)
[2021-06-14] MEDS ORDERED: fentaNYL (PF) 50 MCG/ML 2 ML AMP ONE (11:29)
[2021-06-14] MEDS ORDERED: LIDOCAINE 2% INJ 20 MG/ML (2 ML VIAL) ONE (11:29)
[2021-06-14] MEDS ORDERED: GLYCOPYRROLATE 0.2 MG/ML 2 ML VIAL ONE (11:29)
[2021-06-14] MEDS ORDERED: NALOXONE 0.4 MG/ML 1 ML VIAL IV PRN (12:00)
[2021-06-14 12:55] LABS: HCT 38.2 % (39.0-53.0); Hypochromasia Marked; MCH 21.6 pg (25.0-35.0); MCHC 28.7 g/dL (31.0-37.0); MCV 75.5 fL (80.0-100.0); Mean Platelet Volume 8.2; Microcytosis Slight; Platelet Count 504 k/uL (150-450); RBC 5.07 m/uL (4.30-5.90); RDW 15.8 % (11.5-15.5); WBC 8.1 k/uL (3.8-10.6)
[2021-06-14] MEDS ORDERED: LACTATED RINGERS 1,000 ML IV ONE (13:35)
[2021-06-14] MEDS: ROPIVACAINE 250 MG, HYDROMORPHONE (PF) 5 MG in SODIUM CHLORIDE 0.9% 200 ML EPIDURAL PRN ×2 (13:51→14:30)
[2021-06-14] MEDS ORDERED: ONDANSETRON 4 MG/2 ML VIAL IVP PRN (14:19)
[2021-06-14] MEDS: HEPARIN SODIUM,PORCINE/PF 5,000 UNIT/0.5 ML SYRINGE SQ SCH ×2 (18:25→23:37)
[2021-06-14] MEDS: METOPROLOL SUCCINATE (ER) 50 MG TAB.ER.24H PO SCH (20:39)
[2021-06-14] MEDS: ATORVASTATIN 20 MG TAB PO SCH (20:39)
--- NOTE | 2021-06-14 22:05 | P.CONS ---
History of Present Illness - Reason for Consult Consult date: 06/14/21 medical management Requesting physician: Rojelio Ta - Chief Complaint multiple large colon polyp post open extended right side hemicolectomy. - History of Present Illness HISTORY OF PRESENT ILLNESS 85-year-old male one of Dr. Grigsby patient with past medical history of prostate cancer, hypertension, hyperlipidemia and chronic anemia was claimed to have history of myelodysplasia. Patient apparently found to have mild iron deficiency anemia referred to see Dr. Melton hematology few month ago. Patient ended up and refer for EGD and colonoscopy which were performed 05/26/2021 finding was consistent with large polyp in the right colon area could not be resected with colonoscopy. Apparently patient was referred to [facility] for possible laparoscopy resection of polyps. Colonoscopy was performed patient found to have total of 5 polyp 2 of them are quite bed large and adhesive to the wall of the colon area could not perform polypectomy with colonoscopy. Patient was brought to the hospital Dr. Ta ended up going for open right sided hemicolectomy Magi today with no major complication. Patient was admitted to the floor no NG tube is placed and patient is under control feeling well overall. REVIEW OF SYSTEMS Constitutional: No fever, no chills, no night sweats. No weight change. No we akness, fatigue or lethargy. No daytime sleepiness. EENT: No headache. No blurred vision or double vision, no loss of vision. No loss of Hearing, no ringing in the ears, no dizziness. No nasal drainage or congestion. No epistaxis. No sore throat. Lungs: No shortness of breath, cough, no sputum production. No wheezing. Cardiovascular: No chest pain, no lower extremity edema. No palpitations. No paroxysmal nocturnal dyspnea. No orthopnea. No lightheadedness or dizziness. No syncopal episodes. Abdominal: post right sided hemicolectomy no abdominal pain no nausea vomiting. Genitourinary: No dysuria, increased frequency, urgency. No urinary retention. Musculoskeletal: No myalgias. No muscle weakness, no gait dysfunction, no frequent falls. No back pain. No neck pain. Integumentary: No wounds, no lesions. No rash or pruritus. No unusual bruising. No change in hair or nails. Neurologic: No aphasia. No facial droop. No change in mentation. No head injury. No headache. No paralysis. No paresthesia. Psychiatric: No depression. No anxiety. No mood swings. Endocrine: No abnormal blood sugars. No weight change. No excessive sweating or thirst. No cold intolerance. SOCIAL HISTORY he never smoked, no code abuse, he is and lives with his . He is retired from [employer] at age 54. FAMILY HISTORY his father a 76 from pulmonary embolism, mother a 75 from liver cancer most likely metastasis, patient had a sister both has fun from abdominal aneurysm 1 from CAD. He has a living brother at age 92 bladder cancer. Patient has 4 children with no major medical problem. PHYSICAL EXAMINATION Gen: This is well-developed laying in bed no NG tube and does not look in any re spiratory distress. HEENT: Head is atraumatic, normocephalic. Pupils equal, round. Sclerae is anicte ashley. NECK: Supple. No JVD. No lymphadenopathy. No thyromegaly. LUNGS: Clear to auscultation. No wheezes or rhonchi. No intercostal retractions. HEART: Regular rate and rhythm. No murmur. ABDOMEN: soft incision in the midline looks fine with slight tenderness around the site no bowel sound was found at the time slight tenderness left lower quadrant area. EXTREMITIES: No pedal edema. No calf tenderness. NEUROLOGICAL: Patient is awake, alert and oriented x3. Cranial nerves 2 through 12 are grossly intact. ASSESSMENT AND PLAN 1 post right sided colectomy candidate to large multi polyp with colon cancer. Patient's surgery went successful with no major complication will be waiting for the final pathology meanwhile no NG tube was place and patient is very stable hemodynamically. Continue pain management, continue hydration and titrate oral intake gradually. 2 large colon polyps: Cancer diagnosed patient had surgery at this point. 3 hypertension: Continue amlodipine 10 mg a day and metoprolol 50 mg daily at bedtime. 4 hyperlipidemia: We'll resume atorvastatin 20 mg a day. 5 chronic history of anemia: Mostly iron deficiency with mild symptom of myelo dysplasia will repeat CBC tomorrow. 6 history of prostate cancer post surgery has been in remission and doing well. 7 GI prophylaxis: Patient be on pantoprazole. 8 postsurgical ileus prophylaxis: Patient was started on alvimopan 12 mg twice a day. 9 DVT prophylaxis: Patient will be on heparin 5000 units subcutaneous every 8 hours. CODE STATUS: Full code. Dr. Ta thank you much for the consult If I can be any further help to please let me know. Past Medical History Past Medical History: Cancer, Hyperlipidemia, Hypertension, Osteoarthritis (OA) Additional Past Medical History / Comment(s): recent dx. colon cancer, & mye loproliferative disorder-sees Dr. Melton who did recent phlebotomy per pt., Prostate cancer 2006, vertigo History of Any Multi-Drug Resistant Organisms: None Reported Past Surgical History: Hernia Repair, Joint Replacement, Prostate Surgery Additional Past Surgical History / Comment(s): Left hip and left knee arthroplasty, bilateral inguinal hernia repair, prostatectomy, bilateral cataract removal and intraocular lens implants, recent EGD & colonoscopy Past Anesthesia/Blood Transfusion Reactions: No Reported Reaction Smoking Status: Never smoker - Past Family History Father Family Medical History: COPD Additional Family Medical History / Comment(s): Father at age 76 from a brain hemorrhage. Mother Family Medical History: Liver Disease Additional Family Medical History / Comment(s): Mother at age 82 from liver disease. Brother(s) Family Medical History: Cancer Additional Family Medical History / Comment(s): He has one brother with history of bladder cancer Sister(s) Additional Family Medical History / Comment(s): He has 2 sisters. One from brain aneurysm and one with history of heart problems with the pacemaker. Son(s) Additional Family Medical History / Comment(s): Patient has 3 sons and one daughter with no major medical problems. Medications and Allergies Home Medications Medication Instructions Recorded Confirmed Type Aspirin [Adult Low Dose Aspirin EC] 81 mg PO DAILY 09/25/15 06/14/21 History Atorvastatin [Lipitor] 20 mg PO HS 09/25/15 06/14/21 History Metoprolol Succinate [Toprol XL] 50 mg PO HS 09/25/15 06/14/21 History amLODIPine [Norvasc] 10 mg PO QAM 09/25/15 06/14/21 History Vit C/E/Zn/Coppr/Lutein/Zeaxan 1 tab PO BID 02/23/21 06/14/21 History [Preservision Areds 2 Chew Tab] Allergies Allergy/AdvReac Type Severity Reaction Status Date / Time No Known Allergies Allergy Verified 06/14/21 10:18 Physical Exam Vitals: Vital Signs Temp Pulse Pulse Resp BP BP Pulse Ox 06/14/21 14:45 70 16 119/61 96 06/14/21 14:30 68 16 123/61 95 06/14/21 14:15 73 16 111/56 99 06/14/21 14:00 77 16 108/56 100 06/14/21 13:46 96.9 F L 81 16 132/65 100 06/14/21 11:20 84 16 123/61 99 06/14/21 10:21 97.5 F L 87 18 158/73 97 Intake and Output 06/14/21 06/14/21 06/14/21 06:59 14:59 22:59 Intake Total 1655.2 Output Total 180 200 Balance 1475.2 -200 Intake: IV 1655.2 Output: Urine 80 200 Uretheral (Savage) 200 Estimated Blood Loss 100 Other: Weight 82 kg Results CBC & Chem 7: 06/14/21 12:01 06/14/21 10:30 Labs: Abnormal Lab Results - Last 24 Hours (Table) 06/14/21 Range/Units 12:01 Hgb 11.0 L (13.0-17.5) gm/dL Hct 38.2 L (39.0-53.0) % MCV 75.5 L (80.0-100.0) fL MCH 21.6 L (25.0-35.0) pg MCHC 28.7 L (31.0-37.0) g/dL RDW 15.8 H (11.5-15.5) % Plt Count 504 H (150-450) k/uL
[2021-06-15] MEDS: LACTATED RINGERS 1,000 ML IV SCH ×3 (05:30→23:07)
--- NOTE | 2021-06-15 08:22 | P.PN ---
Progress Note - Text Date: 06/15/2021 Time: 07:22 The patient is status post, open extended right sided hemicolectomy. postoperative day number 1 The patient has no complaints of nausea vomiting or headache. The patient does not complain of any lower extremity numbness or weakness. The epidural is running at 8 mL per hour. VAS 0-10.The epidural will be maintained and adjusted as needed.
--- NOTE | 2021-06-15 08:58 | P.PN ---
Subjective Progress Note Date: 06/15/21 Patient seen and examined at bedside. States he is feeling well. Pain is well controlled. Savage catheter in place with appropriate urine output. No bowel function as of yet. Objective - Vital Signs Vital signs: Vital Signs Temp 97.6 F 06/15/21 04:58 Pulse 84 06/15/21 04:58 Resp 18 06/15/21 04:58 BP 119/65 06/15/21 04:58 Pulse Ox 95 06/15/21 04:58 Intake & Output 06/14/21 06/15/21 06/15/21 18:59 06:59 18:59 Intake Total 2155.2 2000 Output Total 380 600 Balance 1775.2 1400 Weight 82 kg Intake: IV 1655.2 Intake, IV Titration 500 1400 Amount Lactated Ringers 1,000 ml 500 1400 @ 125 mls/hr IV .Q8H [facility] Rx#:[id number] Oral 600 Output: Urine 280 600 Uretheral (Savage) 200 Estimated Blood Loss 100 Other: Voiding Method Indwelling Catheter - Constitutional General appearance: Present: cooperative, no acute distress - Respiratory Details: No difficulty with respiration - Gastrointestinal Gastrointestinal Comment(s): Soft, nontender, nondistended, no rebound, no guarding, incision site is clean, dry and intact with surgical dressing in place - Psychiatric Psychiatric: Present: A&O x's 3 - Labs CBC & Chem 7: 06/14/21 12:01 06/14/21 10:30 Labs: Abnormal Lab Results - Last 24 Hours (Table) 06/14/21 Range/Units 12:01 Hgb 11.0 L (13.0-17.5) gm/dL Hct 38.2 L (39.0-53.0) % MCV 75.5 L (80.0-100.0) fL MCH 21.6 L (25.0-35.0) pg MCHC 28.7 L (31.0-37.0) g/dL RDW 15.8 H (11.5-15.5) % Plt Count 504 H (150-450) k/uL Assessment and Plan Plan: Postoperative day #1, extended right hemicolectomy Continue to increase activity, PT and OT have been consulted Continue pain control with epidural Continue Savage catheter while epidural is in place Await bowel function Appreciate medical recommendations Consult to oncology is in place Progressing slowly
[2021-06-15] MEDS: amLODIPine 10 MG TAB PO SCH (09:21)
[2021-06-15] MEDS: PANTOPRAZOLE 40 MG TABLET PO SCH (09:21)
[2021-06-15] MEDS: ALVIMOPAN 12 MG CAPSULE PO SCH ×2 (09:21→21:45)
[2021-06-15] MEDS: HEPARIN SODIUM,PORCINE/PF 5,000 UNIT/0.5 ML SYRINGE SQ SCH ×3 (09:21→23:10)
--- NOTE | 2021-06-15 09:32 | P.ANPRN ---
Procedure Note - Anesthesia - Epidural/Spinal Epidural Continuous Date of Procedure: 06/14/21 Procedure Start Time: 11:05 Procedure Stop Time: 11:13 Location of Patient: PreOp Indication: Acute Post-Operative Pain, Requested by Surgeon Sedation Type: Sedate with meaningful contact maintained Preparation: Sterile Dressing Position: Sitting Catheter: Indwelling Needle Guage: 18 Blood Aspirated: No Pain Paresthesia on Injection Noted: No Events: Uneventful and Well Tolerated (test dose 3c given no adv efects noted)
--- NOTE | 2021-06-15 09:48 | P.PN ---
Subjective Progress Note Date: 06/15/21 HISTORY OF PRESENT ILLNESS 85-year-old male one of Dr. Grigsby patient with past medical history of prostate cancer, hypertension, hyperlipidemia and chronic anemia was claimed to have history of myelodysplasia. Patient apparently found to have mild iron deficiency anemia referred to see Dr. Melton hematology few month ago. Patient ended up and refer for EGD and colonoscopy which were performed 05/26/2021 finding was consistent with large polyp in the right colon area could not be resected with colonoscopy. Apparently patient was referred to [facility] for possible laparoscopy resection of polyps. Colonoscopy was performed patient found to have total of 5 polyp 2 of them are quite bed large and adhesive to the wall of the colon area could not perform polypectomy with colonoscopy. Patient was brought to the hospital Dr. Ta ended up going for open right sided hemicolectomy Magi today with no major complication. Patient was admitted to the floor no NG tube is placed and patient is under control feeling well overall. 06/15: Patient is seen today on the [facility] floor, postop day #1. Pain is currently controlled, patient has epidural in place a Savage catheter. Consult has been added for Dr. Melton for evaluation and plan for further treatment. He is currently on a clear liquid diet and tolerating. Patient is maintained on entereg. Patient has been afebrile, heart rate 84, blood pressure 119/65, pulse ox 94% on room air. REVIEW OF SYSTEMS Constitutional: No fever, no chills, no night sweats. No weight change. No wea kness, fatigue or lethargy. No daytime sleepiness. EENT: No headache. No blurred vision or double vision, no loss of vision. No loss of Hearing, no ringing in the ears, no dizziness. No nasal drainage or congestion. No epistaxis. No sore throat. Lungs: No shortness of breath, cough, no sputum production. No wheezing. Cardiovascular: No chest pain, no lower extremity edema. No palpitations. No paroxysmal nocturnal dyspnea. No orthopnea. No lightheadedness or dizziness. No syncopal episodes. Abdominal: post right sided hemicolectomy no abdominal pain no nausea vomiting. Genitourinary: No dysuria, increased frequency, urgency. No urinary retention. Musculoskeletal: No myalgias. No muscle weakness, no gait dysfunction, no frequent falls. No back pain. No neck pain. Integumentary: No wounds, no lesions. No rash or pruritus. No unusual bruising. No change in hair or nails. Neurologic: No aphasia. No facial droop. No change in mentation. No head injury. No headache. No paralysis. No paresthesia. Psychiatric: No depression. No anxiety. No mood swings. Endocrine: No abnormal blood sugars. No weight change. No excessive sweating or thirst. No cold intolerance. PHYSICAL EXAMINATION Gen: This is well-developed laying in bed no NG tube and does not look in any respiratory distress. HEENT: Head is atraumatic, normocephalic. Pupils equal, round. Sclerae is anicteric. NECK: Supple. No JVD. No lymphadenopathy. No thyromegaly. LUNGS: Clear to auscultation. No wheezes or rhonchi. No intercostal retractions. HEART: Regular rate and rhythm. No murmur. ABDOMEN: soft incision in the midline looks fine with slight tenderness around the site no bowel sound was found at the time slight tenderness left lower quadrant area. Savage catheter draining clear mary ann urine. EXTREMITIES: No pedal edema. No calf tenderness. NEUROLOGICAL: Patient is awake, alert and oriented x3. Cranial nerves 2 through 12 are grossly intact. ASSESSMENT AND PLAN 1 post right sided colectomy candidate to large multi polyp with colon cancer, 06/14. Patient's surgery went successful with no major complication will be waiting for the final pathology meanwhile patient is very stable hemodynamically. Continue pain management, continue hydration and titrate oral intake gradually. 2 large colon polyps: Cancer diagnosed patient had surgery at this point. 3 hypertension: Continue amlodipine 10 mg a day and metoprolol 50 mg daily at bedtime. 4 hyperlipidemia: We'll resume atorvastatin 20 mg a day. 5 chronic history of anemia: Mostly iron deficiency with mild symptom of myelodysplasia will repeat CBC tomorrow. 6 history of prostate cancer post surgery has been in remission and doing well. 7 GI prophylaxis: Patient be on pantoprazole. 8 postsurgical ileus prophylaxis: Patient was started on alvimopan 12 mg twice a day. 9 DVT prophylaxis: Patient will be on heparin 5000 units subcutaneous every 8 hours. CODE STATUS: Full code. DISCHARGE PLAN TBD. PT and OT consults are in place. Impression and plan of care have been directed as dictated by the signing physician. Rashmi Tovar nurse practitioner acting as scribe for signing physician. Objective - Vital Signs Vital signs: Vital Signs Temp 97.6 F 06/15/21 04:58 Pulse 84 06/15/21 04:58 Resp 18 06/15/21 04:58 BP 119/65 06/15/21 04:58 Pulse Ox 95 06/15/21 04:58 Intake & Output 06/14/21 06/15/21 06/15/21 18:59 06:59 18:59 Intake Total 2155.2 2000 Output Total 380 600 Balance 1775.2 1400 Weight 82 kg Intake: IV 1655.2 Intake, IV Titration 500 1400 Amount Lactated Ringers 1,000 ml 500 1400 @ 125 mls/hr IV .Q8H [facility] Rx#:[id number] Oral 600 Output: Urine 280 600 Uretheral (Savage) 200 Estimated Blood Loss 100 Other: Voiding Method Indwelling Catheter - Labs CBC & Chem 7: 06/14/21 12:01 06/14/21 10:30 Labs: Abnormal Lab Results - Last 24 Hours (Table) 06/14/21 Range/Units 12:01 Hgb 11.0 L (13.0-17.5) gm/dL Hct 38.2 L (39.0-53.0) % MCV 75.5 L (80.0-100.0) fL MCH 21.6 L (25.0-35.0) pg MCHC 28.7 L (31.0-37.0) g/dL RDW 15.8 H (11.5-15.5) % Plt Count 504 H (150-450) k/uL
[2021-06-15 10:35] LABS: HCT 35.9 % (39.6-50.0); HGB 10.6 g/dL (13.0-17.0); MCH 21.9 pg (27.0-32.0); MCHC 29.5 g/dL (32.0-37.0); MCV 74.3 fL (80.0-97.0); Mean Platelet Volume 10.1 fL (9.5-12.2); NRBC Per 100 WBC 0 /100 WBCS (0.0-0.0); Platelet Count 492 X 10*3/uL (140-440); RBC 4.83 X 10*6/uL (4.40-5.60); RDW 17.4 % (11.5-14.5); WBC 13.92 X 10*3/uL (4.50-10.00)
[2021-06-15 10:49] LABS: African American GFR (CKD) 91.4 (60.0-200.0); Albumin 3.6 g/dL (3.8-4.9); Albumin/Globulin Ratio 1.59 (1.60-3.17); Anion Gap 9.7 mmol/L (10.00-18.00); BUN/Creat Ratio 19.33 Ratio (12.00-20.00); Blood Urea Nitrogen 17.3 mg/dL (9.0-27.0); Calcium 8.9 mg/dL (8.7-10.3); Carbon Dioxide 25.2 mmol/L (20.0-27.5); Globulin 2.3 g/dL (1.6-3.3); Non-African American GFR(CKD) 78.9 (60.0-200.0); Potassium 4.4 mmol/L (3.5-5.5); Total Bilirubin 0.5 mg/dL (0.30-1.20); Total Protein 5.8 g/dL (6.2-8.2)
[2021-06-15 11:52] LABS: Basophils # (M) 0.14 X 10*3/uL (0.00-0.10); Eosinophils # (M) 0 X 10*3/uL (0.04-0.35); Lymphocytes # (M) 0.42 X 10*3/uL (0.90-5.00); Neutrophils # (M) 12.67 X 10*3/uL (2.00-8.90); Neutrophils % (M) 91 %
--- NOTE | 2021-06-15 12:09 | P.OP ---
Date of Procedure: 06/14/21 Preoperative Diagnosis: Adenocarcinoma of the colon Postoperative Diagnosis: Adenocarcinoma of the colon Procedure(s) Performed: Extended right hemicolectomy Anesthesia: LOUIS Surgeon: Rojelio Ta Pathology: other (Extended right colon/transverse colon) Condition: stable Disposition: floor Indications for Procedure: 85-year-old male with initial polyp found on colonoscopy with finding of high- grade dysplasia. He was sent for advanced GI evaluation and possible EMR, however he was unable to have this procedure performed based on quality of the mass. Additional biopsies that were performed at that time showed invasive adenocarcinoma. CT of the abdomen and pelvis was performed with finding of liver lesions. On further work-up, MRI was performed and these lesions were noted as cysts. Secondary to this, plan is for colectomy. He was explained risks, benefits and alternatives to the procedure and did provide consent prior to attending the operating suite. Operative Findings: 2 separate tattooed areas in the hepatic flexure and distal transverse colon Description of Procedure: An epidural catheter was placed by anesthesia prior to start of the procedure. The patient was placed in supine position. Timeouts were performed using both preinduction and precision safety checklist's. General endotracheal anesthesia was induced. Preoperative antibiotics were given. A Savage catheter was placed. The abdomen was prepped and draped in regular sterile fashion. A vertical midline incision was made and this was deepened through the subcutaneous tissues and hemostasis was achieved with electrocautery. The linea alba was identified and incised and the peritoneal cavity entered. The abdomen was explored. Tattoo locations were noted at the hepatic flexure and distal transverse colon. The liver, omentum, peritoneum were inspected for evidence of metastatic disease and there was no metastatic disease noted. The small bowel was inspected and retracted to the left using moist gauze and self retraining retractor. Using electrocautery, the colon was freed from its peritoneal attachments along the white line of Toldt from the cecum to the hepatic flexure. Additional lateral peritoneal coverings were incised to further mobilize the colon. The dissection was extended across the ileocolic junction and terminal ileum was mobilized. The right ureter was identified and protected, as were the duodenum, right kidney and the hepatic flexure was carefully mobilized by dividing the peritoneum in the hepatorenal fossa. Additional dissection was carried towards the distal transverse colon. When both tattooed areas were safely within anticipated specimen, points of transection were selected proximally and distally. The bowel was divided with a linear cutting stapler. The peritoneum overlying the mesentery was then scored with electrocautery and the ileocolic artery was ligated using LigaSure device. The remaining mesentery and all associated raghu tissue was divided and swept down with the specimen. The specimen was removed. Hemostasis was noted in the operative field. The 2 ends of the bowel were checked and found to be viable, with excellent blood supply. The proximal and distal segments were brought into a position and found to lie comfortably next to each other without tension. Enterotomies were made on the antimesenteric border of the staple line on the ileum and transverse colon and the linear cutting stapler inserted and fired. Hemostasis was checked and the staple line was noted to be hemostatic. The enterotomies were then closed with a TX staple load. The staple line was then imbricated using Lembert sutures of 3-0 Vicryl. The anastomosis was checked and found to be intact and widely patent. The mesenteric defect was closed with interrupted 3-0 Vicryl suture. The abdominal cavity was then copiously irrigated and hemostasis was checked. The fascia was then closed with a running looped suture of looped PDS. The skin was then closed with skin emerald. The patient tolerated the procedure well and was taken to postanesthesia care unit in stable condition.
--- NOTE | 2021-06-15 15:24 | P.CONS ---
History of Present Illness - Reason for Consult Consult date: 06/15/21 Known cancer patient Requesting physician: Rojelio Ta - Chief Complaint Elective surgery - History of Present Illness Mr. Alfred is a pleasant male pt of Dr. Melton with overall well-controlled medical problems other than issues with recurrent extensive skin rash. The patient was noted on labs done on 08/27/20 to have elevated platelets at 552, Hgb 15.7, WBC 8.5 with mildly elevated neutrophil 82.6%. The patient denied any prior history of blood related problems. He has a prior history of early-stage prostate cancer treated with surgery in 2006. PSA levels have been undetectable since including on routine visit in 04/04. He had an extensive nodular ulcerating skin rash involving his lower extremities as well as lower posterior trunk. This had initially occurred about 2-3 years ago. He states that he was seen by Dermatology, had a biopsy, told that he had eczema. The rash resolved quickly with systemic steroids but then subsequently recurred. However the patient did not follow-up with Dermatology for the same. Due to persistent of the rash he has used topical cream containing steroid intermittently without much benefit. No known diagnosis of any chronic inflammatory condition. He was a very light smoker and quit many years ago. 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 Iron studies did show low saturation with ferritin in the 60 range. Plt elevation was felt to be in a low risk range, he was started on treatment aimed at the RBC line, with phlebotomies every 2 weeks, Hgb normalized, no phlebo since 03/05. He was referred to Surgery for upper and lower endoscopies for low iron stores, done 02/25/21, showing evidence of gastritis and esophagitis. In the colon a polyp was completely removed and the descending colon had a tubular adenoma. However there was a suspicious mass at the hepatic flexure with biopsy showing at least high-grade dysplasia. Was referred to [facility] and attempt at EMR was planned for 05/11/21. However, at the time of the procedure, this was not found to be resectable endoscopically. He is currently admitted for extended rt hemicolectomy. He is post op day 1, doing well, denies any flatus yet, pain is controlled. Review of Systems 10 point review of systems negative except as stated in HPI Past Medical History Past Medical History: Cancer, Hyperlipidemia, Hypertension, Osteoarthritis (OA) Additional Past Medical History / Comment(s): recent dx. colon cancer, & myeloproliferative disorder-sees Dr. Melton who did recent phlebotomy per pt., Prostate cancer 2006, vertigo History of Any Multi-Drug Resistant Organisms: None Reported Past Surgical History: Hernia Repair, Joint Replacement, Prostate Surgery Additional Past Surgical History / Comment(s): Left hip and left knee arthroplasty, bilateral inguinal hernia repair, prostatectomy, bilateral cataract removal and intraocular lens implants, recent EGD & colonoscopy Past Anesthesia/Blood Transfusion Reactions: No Reported Reaction Past Psychological History: No Psychological Hx Reported Smoking Status: Never smoker Past Alcohol Use History: None Reported Past Drug Use History: None Reported - Past Family History Father Family Medical History: COPD Additional Family Medical History / Comment(s): Father at age 76 from a brain hemorrhage. Mother Family Medical History: Liver Disease Additional Family Medical History / Comment(s): Mother at age 82 from liver disease. Brother(s) Family Medical History: Cancer Additional Family Medical History / Comment(s): He has one brother with history of bladder cancer Sister(s) Additional Family Medical History / Comment(s): He has 2 sisters. One from brain aneurysm and one with history of heart problems with the pacemaker. Son(s) Additional Family Medical History / Comment(s): Patient has 3 sons and one daughter with no major medical problems. Medications and Allergies Home Medications Medication Instructions Recorded Confirmed Type Aspirin [Adult Low Dose Aspirin EC] 81 mg PO DAILY 09/25/15 06/14/21 History Atorvastatin [Lipitor] 20 mg PO HS 09/25/15 06/14/21 History Metoprolol Succinate [Toprol XL] 50 mg PO HS 09/25/15 06/14/21 History amLODIPine [Norvasc] 10 mg PO QAM 09/25/15 06/14/21 History Vit C/E/Zn/Coppr/Lutein/Zeaxan 1 tab PO BID 02/23/21 06/14/21 History [Preservision Areds 2 Chew Tab] Allergies Allergy/AdvReac Type Severity Reaction Status Date / Time No Known Allergies Allergy Verified 06/14/21 10:18 Physical Exam Vitals: Vital Signs Temp Pulse Pulse Pulse Resp BP BP 06/15/21 04:58 97.6 F 84 18 119/65 06/14/21 20:10 16 06/14/21 20:00 97.4 F L 90 16 121/68 06/14/21 19:42 06/14/21 14:45 70 16 119/61 06/14/21 14:30 68 16 123/61 06/14/21 14:15 73 16 111/56 06/14/21 14:00 77 16 108/56 06/14/21 13:46 96.9 F L 81 16 132/65 06/14/21 11:20 84 16 123/61 Pulse Ox 06/15/21 04:58 95 06/14/21 20:10 06/14/21 20:00 91 L 06/14/21 19:42 95 06/14/21 14:45 96 06/14/21 14:30 95 06/14/21 14:15 99 06/14/21 14:00 100 06/14/21 13:46 100 06/14/21 11:20 99 Intake and Output 06/14/21 06/15/21 06/15/21 22:59 06:59 14:59 Intake Total 500 2000 Output Total 200 600 Balance 300 1400 Intake: Intake, IV Titration 500 1400 Amount Lactated Ringers 1,000 ml 500 1400 @ 125 mls/hr IV .Q8H [facility] Rx#:[id number] Oral 600 Output: Urine 200 600 Uretheral (Savage) 200 Other: Voiding Method Indwelling Catheter - Constitutional General appearance: average body habitus, cooperative, no acute distress - EENT Eyes: anicteric sclerae, EOMI ENT: hearing grossly normal, normal oropharynx - Neck Neck: no lymphadenopathy - Respiratory Respiratory: bilateral: CTA - Cardiovascular Rhythm: regular Heart sounds: normal: S1, S2 Abnormal Heart Sounds: no systolic murmur, no diastolic murmur, no rub, no S3 Gallop, no S4 Gallop, no click, no other leg Peripheral Edema: bilateral: None - Gastrointestinal General gastrointestinal: no absent bowel sounds, decreased bowel sounds, no distended, no hepatomegaly, no hyperactive bowel sounds, no normal bowel sounds, no organomegaly, no rigid, no scaphoid, soft, no splenomegaly, tenderness, no umbilical hernia, no ventral hernia - Integumentary Integumentary: normal - Neurologic Neurologic: CNII-XII intact - Musculoskeletal Musculoskeletal: strength equal bilaterally - Psychiatric Psychiatric: A&O x's 3, appropriate affect, intact judgment & insight Results CBC & Chem 7: 06/15/21 06:43 06/15/21 06:43 Labs: Abnormal Lab Results - Last 24 Hours (Table) 06/14/21 06/15/21 06/15/21 Range/Units 12:01 06:43 06:43 WBC 13.92 H (4.50-10.00) X 10*3/uL Hgb 11.0 L 10.6 L (13.0-17.5) gm/dL Hct 38.2 L 35.9 L (39.0-53.0) % MCV 75.5 L 74.3 L (80.0-100.0) fL MCH 21.6 L 21.9 L (25.0-35.0) pg MCHC 28.7 L 29.5 L (31.0-37.0) g/dL RDW 15.8 H 17.4 H (11.5-15.5) % Plt Count 504 H 492 H (150-450) k/uL Anion Gap 9.70 L (10.00-18.00) mmol/L Glucose 136 H (70-110) mg/dL Total Protein 5.8 L (6.2-8.2) g/dL Albumin 3.6 L (3.8-4.9) g/dL Albumin/Globulin Ratio 1.59 L (1.60-3.17) g/dL Assessment and Plan (1) Colon adenocarcinoma Current Visit: Yes Status: Acute Priority: High Code(s): C18.9 - MALIGNANT NEOPLASM OF COLON, UNSPECIFIED SNOMED Code(s): 378060039 (2) History of prostate cancer Current Visit: No Status: Chronic Priority: Low Code(s): Z85.46 - PERSONAL HISTORY OF MALIGNANT NEOPLASM OF PROSTATE SNOMED Code(s): 124185433 Plan: Pt s/p extended rt hemicolectomy, path pending, doing well post op. We will monitor blood counts. Pt has f/u with Dr. Melton 07/14/at 2pm. Doctor attests: I performed a history and physical examination of this patient, developed impression and plan of care. Discussed with dictator. I agree with dictators note, documented as a scribe.
[2021-06-15] MEDS: ROPIVACAINE 250 MG, HYDROMORPHONE (PF) 5 MG in SODIUM CHLORIDE 0.9% 200 ML EPIDURAL PRN (20:58)
[2021-06-15] MEDS: ATORVASTATIN 20 MG TAB PO SCH (21:16)
[2021-06-15] MEDS: METOPROLOL SUCCINATE (ER) 50 MG TAB.ER.24H PO SCH (21:16)
[2021-06-16] MEDS: LACTATED RINGERS 1,000 ML IV SCH ×3 (04:23→18:21)
[2021-06-16] MEDS: amLODIPine 10 MG TAB PO SCH (09:01)
[2021-06-16] MEDS: ALVIMOPAN 12 MG CAPSULE PO SCH ×2 (09:01→22:27)
[2021-06-16] MEDS: PANTOPRAZOLE 40 MG TABLET PO SCH (09:01)
[2021-06-16] MEDS: HEPARIN SODIUM,PORCINE/PF 5,000 UNIT/0.5 ML SYRINGE SQ SCH ×2 (09:01→18:21)
--- NOTE | 2021-06-16 10:52 | P.PN ---
Subjective Progress Note Date: 06/16/21 HISTORY OF PRESENT ILLNESS 85-year-old male one of Dr. Grigsby patient with past medical history of prostate cancer, hypertension, hyperlipidemia and chronic anemia was claimed to have history of myelodysplasia. Patient apparently found to have mild iron deficiency anemia referred to see Dr. Melton hematology few month ago. Patient ended up and refer for EGD and colonoscopy which were performed 05/26/2021 finding was consistent with large polyp in the right colon area could not be resected with colonoscopy. Apparently patient was referred to [facility] for possible laparoscopy resection of polyps. Colonoscopy was performed patient found to have total of 5 polyp 2 of them are quite bed large and adhesive to the wall of the colon area could not perform polypectomy with colonoscopy. Patient was brought to the hospital Dr. Ta ended up going for open right sided hemicolectomy Magi today with no major complication. Patient was admitted to the floor no NG tube is placed and patient is under control feeling well overall. 06/15: Patient is seen today on the [facility] floor, postop day #1. Pain is currently controlled, patient has epidural in place a Savage catheter. Consult has been added for Dr. Melton for evaluation and plan for further treatment. He is currently on a clear liquid diet and tolerating. Patient is maintained on entereg. Patient has been afebrile, heart rate 84, blood pressure 119/65, pulse ox 94% on room air. 06/16: Patient is currently on a clear liquid diet and tolerated with no nausea or vomiting. He has not had a bowel movement. No bowel sounds. Savage catheter epidural remained in place. Patient has been afebrile, heart rate 78, blood pressure 125/69, pulse ox 92% on room air. Patient is working with PT and OT and did very well with recommendations for home. Repeat blood work was ordered for tomorrow. REVIEW OF SYSTEMS Constitutional: No fever, no chills, no night sweats. No weight change. No weakness, fatigue or lethargy. No daytime sleepiness. EENT: No headache. No blurred vision or double vision, no loss of vision. No loss of Hearing, no ringing in the ears, no dizziness. No nasal drainage or congestion. No epistaxis. No sore throat. Lungs: No shortness of breath, cough, no sputum production. No wheezing. Cardiovascular: No chest pain, no lower extremity edema. No palpitations. No paroxysmal nocturnal dyspnea. No orthopnea. No lightheadedness or dizziness. No syncopal episodes. Abdominal: post right sided hemicolectomy no abdominal pain no nausea vomiting. No bowel movement. Genitourinary: No dysuria, increased frequency, urgency. No urinary retention. Musculoskeletal: No myalgias. No muscle weakness, no gait dysfunction, no frequent falls. No back pain. No neck pain. Integumentary: No wounds, no lesions. No rash or pruritus. No unusual bruising. No change in hair or nails. Neurologic: No aphasia. No facial droop. No change in mentation. No head injury. No headache. No paralysis. No paresthesia. Psychiatric: No depression. No anxiety. No mood swings. Endocrine: No abnormal blood sugars. No weight change. No excessive sweating or thirst. No cold intolerance. PHYSICAL EXAMINATION Gen: This is well-developed laying in bed no NG tube and does not look in any respiratory distress. Epidural remains in place. HEENT: Head is atraumatic, normocephalic. Pupils equal, round. Sclerae is anicteric. NECK: Supple. No JVD. No lymphadenopathy. No thyromegaly. LUNGS: Clear to auscultation. No wheezes or rhonchi. No intercostal retractions. HEART: Regular rate and rhythm. No murmur. ABDOMEN: soft incision in the midline looks fine with slight tenderness around the site no bowel sound was found at the time slight tenderness left lower quadrant area. Savage catheter draining clear mary ann urine. EXTREMITIES: No pedal edema. No calf tenderness. NEUROLOGICAL: Patient is awake, alert and oriented x3. Cranial nerves 2 through 12 are grossly intact. ASSESSMENT AND PLAN 1 post right sided colectomy candidate to large multi polyp with colon cancer, 06/14. Patient's surgery went successful with no major complication will be waiting for the final pathology meanwhile patient is very stable hemodynamically. Continue pain management, continue hydration and titrate oral intake gradually. 2 large colon polyps: Cancer diagnosed patient had surgery at this point. 3 hypertension: Continue amlodipine 10 mg a day and metoprolol 50 mg daily at bedtime. 4 hyperlipidemia: We'll resume atorvastatin 20 mg a day. 5 chronic history of anemia: Mostly iron deficiency with mild symptom of m yelodysplasia will repeat CBC tomorrow. 6 history of prostate cancer post surgery has been in remission and doing well. 7 GI prophylaxis: Patient be on pantoprazole. 8 postsurgical ileus prophylaxis: Patient was started on alvimopan 12 mg twice a day. 9 DVT prophylaxis: Patient will be on heparin 5000 units subcutaneous every 8 hours. CODE STATUS: Full code. DISCHARGE PLAN Home Impression and plan of care have been directed as dictated by the signing physician. Rashmi Tovar nurse practitioner acting as scribe for signing physician. Objective - Vital Signs Vital signs: Vital Signs Temp 98.2 F 06/16/21 05:00 Pulse 78 06/16/21 05:00 Resp 18 06/16/21 05:00 BP 125/69 06/16/21 05:00 Pulse Ox 92 L 06/16/21 05:00 Intake & Output 06/15/21 06/16/21 06/16/21 18:59 06:59 18:59 Intake Total 900 450 Output Total 1000 1100 Balance -100 -650 Intake: Oral 900 450 Output: Urine 1000 1100 Uretheral (Savage) 1100 Other: Voiding Method Indwelling Catheter - Labs CBC & Chem 7: 06/15/21 06:43 06/15/21 06:43 Labs: Abnormal Lab Results - Last 24 Hours (Table) 06/15/21 06/15/21 Range/Units 06:43 06:43 WBC 13.92 H (4.50-10.00) X 10*3/uL Hgb 10.6 L (13.0-17.0) g/dL Hct 35.9 L (39.6-50.0) % MCV 74.3 L (80.0-97.0) fL MCH 21.9 L (27.0-32.0) pg MCHC 29.5 L (32.0-37.0) g/dL RDW 17.4 H (11.5-14.5) % Plt Count 492 H (140-440) X 10*3/uL Plt Count Comment INCREASED A Neutrophils # (Manual) 12.67 H (2.00-8.90) X 10*3/uL Lymphocytes # (Manual) 0.42 L (0.90-5.00) X 10*3/uL Eosinophils # (Manual) 0 L (0.04-0.35) X 10*3/uL Basophils # (Manual) 0.14 H (0.00-0.10) X 10*3/uL Anion Gap 9.70 L (10.00-18.00) mmol/L Glucose 136 H (70-110) mg/dL Total Protein 5.8 L (6.2-8.2) g/dL Albumin 3.6 L (3.8-4.9) g/dL Albumin/Globulin Ratio 1.59 L (1.60-3.17) g/dL
--- NOTE | 2021-06-16 12:06 | P.PN ---
Progress Note - Text Progress Note Date: 06/16/21 85-year-old male status post right hemicolectomy postop day #2, epidural catheter day #3. VAS ranges between Epidural catheter site is clean dry and intact. Patient is tolerating diet, is on subcutaneous heparin 5000 units every 8 hours. Epidural solution ropivacaine 0.125% with Dilaudid 20 g per mL. Running at a rate of 8ml/hr PLAN: Continue epidural at current settings and remove tomorrow before morning Heparin SQ Can remove kamara catheter if primary team wishes to
--- NOTE | 2021-06-16 13:40 | P.PN ---
Subjective Progress Note Date: 06/16/21 Patient seen and examined at bedside. He is currently sitting in a chair and tolerating clear liquid diet. Denies any bowel function as of yet with no flatus. Continues to have appropriate urine output. Denies any significant abdominal pain. Epidural in place and functioning. Objective - Vital Signs Vital signs: Vital Signs Temp 99.2 F 06/16/21 12:34 Pulse 50 L 06/16/21 12:34 Resp 18 06/16/21 12:34 BP 106/59 06/16/21 12:34 Pulse Ox 97 06/16/21 12:34 Intake & Output 06/15/21 06/16/21 06/16/21 18:59 06:59 18:59 Intake Total 900 450 Output Total 1000 1100 Balance -100 -650 Intake: Oral 900 450 Output: Urine 1000 1100 Uretheral (Savage) 1100 Other: Voiding Method Indwelling Catheter Indwelling Catheter - Constitutional General appearance: Present: cooperative, no acute distress - Gastrointestinal Gastrointestinal Comment(s): Soft, appropriate tenderness, mildly distended, no rebound, no guarding, - Psychiatric Psychiatric: Present: A&O x's 3 - Labs CBC & Chem 7: 06/15/21 06:43 06/15/21 06:43 Assessment and Plan Plan: Postoperative day #2, extended right hemicolectomy Continue to increase activity, PT and OT have been consulted Continue pain control with epidural, likely discontinue epidural tomorrow based on anesthesia recommendations Continue Savage catheter while epidural is in place Await bowel function Appreciate medical recommendations Appreciate oncology input Progressing slowly
--- NOTE | 2021-06-16 19:20 | US ---
EXAMINATION TYPE: US venous doppler duplex LE RT DATE OF EXAM: 06/16/2021 6:49 PM COMPARISON: NONE CLINICAL HISTORY: swollen ,painful knee. dvt. Swollen right knee SIDE PERFORMED: Right TECHNIQUE: The lower extremity deep venous system is examined utilizing real time linear array sonog harris with graded compression, doppler sonography and color-flow sonography. VESSELS IMAGED: Common Femoral Vein Deep Femoral Vein Greater Saphenous Vein * Femoral Vein Popliteal Vein Small Saphenous Vein * Proximal Calf Veins (* superficial vessels) Grayscale, color doppler, spectral doppler imaging performed of the deep veins of the lower extremiti es. There is normal flow, compressibility, vascular waveforms. There is subcutaneous streaky edema in the left right lower extremity. Right Leg: Negative for DVT IMPRESSION: No evidence of deep vein thrombosis of the right lower extremity. Subcutaneous edema of the right lower extremity.
[2021-06-16] MEDS: METOPROLOL SUCCINATE (ER) 50 MG TAB.ER.24H PO SCH (21:08)
[2021-06-16] MEDS: ATORVASTATIN 20 MG TAB PO SCH (21:08)
[2021-06-16] MEDS: ROPIVACAINE 250 MG, HYDROMORPHONE (PF) 5 MG in SODIUM CHLORIDE 0.9% 200 ML EPIDURAL PRN (22:29)
[2021-06-17] MEDS: HEPARIN SODIUM,PORCINE/PF 5,000 UNIT/0.5 ML SYRINGE SQ SCH ×3 (00:42→16:17)
--- NOTE | 2021-06-17 08:11 | P.PN ---
Progress Note - Text 06/17/21 650am 5-year-old male status post right hemicolectomy by Dr. Ta. Patient has an epidural catheter for postop pain control with the solution running at 8 mL an hour with a VAS of the patient has no sensory or motor deficits, has been ambulating well. Ultrasound was done to rule out DVT, the results were negative. Plan to DC epidural catheter
[2021-06-17] MEDS ORDERED: MORPHINE SULFATE 2 MG/ML SYRINGE IVP PRN (08:30)
[2021-06-17] MEDS: COLCHICINE 0.6 MG EACH PO SCH (08:58)
[2021-06-17] MEDS: LACTATED RINGERS 1,000 ML IV SCH ×3 (08:59→17:05)
[2021-06-17] MEDS: PANTOPRAZOLE 40 MG TABLET PO SCH (09:02)
[2021-06-17] MEDS: amLODIPine 10 MG TAB PO SCH (09:02)
[2021-06-17] MEDS: ALVIMOPAN 12 MG CAPSULE PO SCH ×2 (09:03→21:27)
[2021-06-17 09:24] LABS: Basophils # (A) 0.05 X 10*3/uL (0.00-0.10); Basophils % (A) 0.4 %; Eosinophils # (A) 0.11 X 10*3/uL (0.04-0.35); HCT 36.4 % (39.6-50.0); HGB 10.5 g/dL (13.0-17.0); Immature Grans, Automated 0.4 %; Lymphocytes # (A) 0.67 X 10*3/uL (0.90-5.00); MCH 21.6 pg (27.0-32.0); MCHC 28.8 g/dL (32.0-37.0); MCV 75.1 fL (80.0-97.0); Mean Platelet Volume 10.4 fL (9.5-12.2); Monocytes # (A) 2.08 X 10*3/uL (0.20-1.00); Monocytes % (A) 18.7 %; NRBC Per 100 WBC 0 /100 WBCS (0.0-0.0); Neutrophils # (A) 8.17 X 10*3/uL (1.80-7.70); Neutrophils % (A) 73.5 %; Platelet Count 449 X 10*3/uL (140-440); RBC 4.85 X 10*6/uL (4.40-5.60); RDW 17.4 % (11.5-14.5); WBC 11.13 X 10*3/uL (4.50-10.00)
[2021-06-17 09:46] LABS: African American GFR (CKD) 91.2 (60.0-200.0); Albumin 3.2 g/dL (3.8-4.9); Albumin/Globulin Ratio 1.33 (1.60-3.17); BUN/Creat Ratio 12.56 Ratio (12.00-20.00); Blood Urea Nitrogen 11.3 mg/dL (9.0-27.0); Calcium 8.2 mg/dL (8.7-10.3); Globulin 2.4 g/dL (1.6-3.3); Non-African American GFR(CKD) 78.7 (60.0-200.0); Potassium 4.3 mmol/L (3.5-5.5); Total Bilirubin 0.7 mg/dL (0.30-1.20); Total Protein 5.6 g/dL (6.2-8.2)
[2021-06-17] MEDS: HYDROcodone/APAP 5-325MG 1 EACH TAB PO PRN ×3 (10:03→21:27)
--- NOTE | 2021-06-17 11:53 | P.PN ---
Subjective Progress Note Date: 06/17/21 HISTORY OF PRESENT ILLNESS 85-year-old male one of Dr. Grigsby patient with past medical history of prostate cancer, hypertension, hyperlipidemia and chronic anemia was claimed to have history of myelodysplasia. Patient apparently found to have mild iron deficiency anemia referred to see Dr. Melton hematology few month ago. Patient ended up and refer for EGD and colonoscopy which were performed 05/26/2021 finding was consistent with large polyp in the right colon area could not be resected with colonoscopy. Apparently patient was referred to [facility] for possible laparoscopy resection of polyps. Colonoscopy was performed patient found to have total of 5 polyp 2 of them are quite bed large and adhesive to the wall of the colon area could not perform polypectomy with colonoscopy. Patient was brought to the hospital Dr. Ta ended up going for open right sided hemicolectomy Magi today with no major complication. Patient was admitted to the floor no NG tube is placed and patient is under control feeling well overall. 06/15: Patient is seen today on the [facility] floor, postop day #1. Pain is currently controlled, patient has epidural in place a Kamara catheter. Consult has been added for Dr. Melton for evaluation and plan for further treatment. He is currently on a clear liquid diet and tolerating. Patient is maintained on entereg. Patient has been afebrile, heart rate 84, blood pressure 119/65, pulse ox 94% on room air. 06/16: Patient is currently on a clear liquid diet and tolerated with no nausea or vomiting. He has not had a bowel movement. No bowel sounds. Kamara catheter epidural remained in place. Patient has been afebrile, heart rate 78, blood pressure 125/69, pulse ox 92% on room air. Patient is working with PT and OT and did very well with recommendations for home. Repeat blood work was ordered for tomorrow. 06/17: She was seen by anesthesia this morning plan is to discontinue epidural and Kamara catheter today. Patient is not passing gas and has not had a bowel movement. He is complaining of ankle pain that started last evening no and both ankles and worsening. Uric acid came back at 6.8 with patient will be started on colchicine 0.6 mg oral daily. He has been afebrile, heart rate 91, blood pressure 115/63 and pulse ox 93% on room air. Repeat blood work reveals WBC 11.1, hemoglobin 10.5, platelet count 449. Electrolytes and renal function normal. Blood sugar 115. AST 38 otherwise liver function tests are normal. Calcium 8.2. Albumin 3.2. 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 12 mesenteric lymph nodes negative for metastasis. Report discussed with the patient. REVIEW OF SYSTEMS Constitutional: No fever, no chills, no night sweats. No weight change. No weakness, fatigue or lethargy. No daytime sleepiness. EENT: No headache. No blurred vision or double vision, no loss of vision. No loss of Hearing, no ringing in the ears, no dizziness. No nasal drainage or congestion. No epistaxis. No sore throat. Lungs: No shortness of breath, cough, no sputum production. No wheezing. Cardiovascular: No chest pain, no lower extremity edema. No palpitations. No paroxysmal nocturnal dyspnea. No orthopnea. No lightheadedness or dizziness. No syncopal episodes. Abdominal: post right sided hemicolectomy no abdominal pain no nausea vomiting. No bowel movement. Genitourinary: No dysuria, increased frequency, urgency. No urinary retention. Musculoskeletal: No myalgias. No muscle weakness, no gait dysfunction, no frequent falls. No back pain. No neck pain. Integumentary: No wounds, no lesions. No rash or pruritus. No unusual bruising. No change in hair or nails. Neurologic: No aphasia. No facial droop. No change in mentation. No head injury. No headache. No paralysis. No paresthesia. Psychiatric: No depression. No anxiety. No mood swings. Endocrine: No abnormal blood sugars. No weight change. No excessive sweating or thirst. PHYSICAL EXAMINATION Gen: This is well-developed 85-year-old male. He is resting in bed and appears to be in no acute distress. Epidural remains in place. HEENT: Head is atraumatic, normocephalic. Pupils equal, round. Sclerae is anicteric. NECK: Supple. No JVD. No lymphadenopathy. No thyromegaly. LUNGS: Clear to auscultation. No wheezes or rhonchi. No intercostal retractions. HEART: Regular rate and rhythm. No murmur. ABDOMEN: soft incision in the midline looks fine with slight tenderness around the site no bowel sound was found at the time slight tenderness left lower quadrant area. Kamara catheter draining clear mary ann urine. EXTREMITIES: No pedal edema. No calf tenderness. NEUROLOGICAL: Patient is awake, alert and oriented x3. Cranial nerves 2 through 12 are grossly intact. ASSESSMENT AND PLAN 1 post right sided colectomy candidate to large multi polyp with colon cancer, 06/14. Patient's surgery went successful with no major complication will be waiting for the final pathology as above, patient is very stable hemodynamically. Continue pain management, continue hydration and titrate oral intake gradually. Epidural and kamara to be removed today. 2 large colon polyps: Cancer diagnosed patient had surgery at this point. 3 hypertension: Continue amlodipine 10 mg a day and metoprolol 50 mg daily at bedtime. 4 hyperlipidemia: We'll resume atorvastatin 20 mg a day. 5 chronic history of anemia: Mostly iron deficiency with mild symptom of myelodysplasia will repeat CBC tomorrow. 6 history of prostate cancer post surgery has been in remission and doing well. 7 GI prophylaxis: Patient be on pantoprazole. 8 postsurgical ileus prophylaxis: Patient was started on alvimopan 12 mg twice a day. 9 DVT prophylaxis: Patient will be on heparin 5000 units subcutaneous every 8 hours. 10. Possible gout bilat ankles. Patient started on colchine 0.6 mg daily. CODE STATUS: Full code. DISCHARGE PLAN Home possibly over weekend. Impression and plan of care have been directed as dictated by the signing physi chandra. Rashmi Tovar nurse practitioner acting as scribe for signing physician. Objective - Vital Signs Vital signs: Vital Signs Temp 99.1 F 06/17/21 05:00 Pulse 91 06/17/21 05:00 Resp 16 06/17/21 05:00 BP 115/63 06/17/21 05:00 Pulse Ox 93 L 06/17/21 05:00 Intake & Output 06/16/21 06/17/21 06/17/21 18:59 06:59 18:59 Intake Total 750 444.133 Output Total 400 400 Balance 350 44.133 Intake: Intake, IV Titration 204.133 Amount Ropivacaine 250 mg 204.133 Hydromorphone (Pf) 5 mg In Sodium Chloride 0.9% 200 ml @ Per Protocol EPIDURAL .Q0M PRN Rx#: [id number] Oral 750 240 Output: Urine 400 400 Other: Voiding Method Indwelling Catheter Indwelling Catheter - Labs CBC & Chem 7: 06/17/21 05:35 06/17/21 05:35
--- NOTE | 2021-06-17 15:24 | P.PN ---
Subjective Progress Note Date: 06/17/21 Patient seen and examined at bedside. Complaining of ankle pain appears to be having a flareup of gout. States abdominal pain is well-controlled. Denies any nausea or vomiting and is tolerating clear liquids. Denies flatus or bowel movement at this time. Objective - Vital Signs Vital signs: Vital Signs Temp 99.3 F 06/17/21 12:13 Pulse 90 06/17/21 12:13 Resp 16 06/17/21 12:13 BP 119/70 06/17/21 12:13 Pulse Ox 89 L 06/17/21 12:13 Intake & Output 06/16/21 06/17/21 06/17/21 18:59 06:59 18:59 Intake Total 750 444.133 Output Total 400 400 350 Balance 350 44.133 -350 Intake: Intake, IV Titration 204.133 Amount Ropivacaine 250 mg 204.133 Hydromorphone (Pf) 5 mg In Sodium Chloride 0.9% 200 ml @ Per Protocol EPIDURAL .Q0M PRN Rx#: [id number] Oral 750 240 Output: Urine 400 400 350 Uretheral (Savage) 350 Other: Voiding Method Indwelling Catheter Indwelling Catheter - Constitutional General appearance: Present: cooperative - Gastrointestinal Gastrointestinal Comment(s): Soft, nontender, improved distention from yesterday, no rebound, guarding, midline incision with surgical dressing in place - Psychiatric Psychiatric: Present: A&O x's 3 - Labs CBC & Chem 7: 06/17/21 05:35 06/17/21 05:35 Labs: Abnormal Lab Results - Last 24 Hours (Table) 06/17/21 06/17/21 Range/Units 05:35 05:35 WBC 11.13 H (4.50-10.00) X 10*3/uL Hgb 10.5 L (13.0-17.0) g/dL Hct 36.4 L (39.6-50.0) % MCV 75.1 L (80.0-97.0) fL MCH 21.6 L (27.0-32.0) pg MCHC 28.8 L (32.0-37.0) g/dL RDW 17.4 H (11.5-14.5) % Plt Count 449 H (140-440) X 10*3/uL Immature Gran # 0.05 H (0.00-0.04) X 10*3/uL Neutrophils # 8.17 H (1.80-7.70) X 10*3/uL Lymphocytes # 0.67 L (0.90-5.00) X 10*3/uL Monocytes # 2.08 H (0.20-1.00) X 10*3/uL Glucose 115 H (70-110) mg/dL Calcium 8.2 L (8.7-10.3) mg/dL AST 38 H (14-35) U/L Total Protein 5.6 L (6.2-8.2) g/dL Albumin 3.2 L (3.8-4.9) g/dL Albumin/Globulin Ratio 1.33 L (1.60-3.17) g/dL Assessment and Plan Plan: Postoperative day #3, extended right hemicolectomy Continue to increase activity, PT and OT have evaluated Epidural was discontinued today. We'll begin patient on IV and oral pain control. Savage catheter was discontinued today. Await bowel function Appreciate medical recommendations, colchicine was added secondary to concern for a flareup of gout Appreciate oncology input, pathology did reveal colon adenocarcinoma with negative margins and 12 negative mesenteric lymph nodes Progressing slowly
[2021-06-17 15:43] VITALS: BMI 24.5
--- NOTE | 2021-06-17 20:31 | P.PN ---
Subjective Progress Note Date: 06/17/21 Patient is up in chair and family at bedside. Appears his pathology is positive for mod diff adenocarcinoma with no positive nodes of 12, therefore adjuvant chemo is not recommended. Objective - Vital Signs Vital signs: Vital Signs Temp 99.3 F 06/17/21 12:13 Pulse 90 06/17/21 12:13 Resp 16 06/17/21 12:13 BP 119/70 06/17/21 12:13 Pulse Ox 89 L 06/17/21 12:13 Intake & Output 06/16/21 06/17/21 06/17/21 18:59 06:59 18:59 Intake Total 750 444.133 Output Total 400 400 350 Balance 350 44.133 -350 Intake: Intake, IV Titration 204.133 Amount Ropivacaine 250 mg 204.133 Hydromorphone (Pf) 5 mg In Sodium Chloride 0.9% 200 ml @ Per Protocol EPIDURAL .Q0M PRN Rx#: [id number] Oral 750 240 Output: Urine 400 400 350 Uretheral (Savage) 350 Other: Voiding Method Indwelling Catheter Indwelling Catheter - Exam - Constitutional General appearance: average body habitus, cooperative, no acute distress - EENT Eyes: anicteric sclerae, EOMI ENT: hearing grossly normal, normal oropharynx - Neck Neck: no lymphadenopathy - Respiratory Respiratory: bilateral: CTA - Cardiovascular Rhythm: regular Heart sounds: normal: S1, S2 Abnormal Heart Sounds: no systolic murmur, no diastolic murmur, no rub, no S3 Gallop, no S4 Gallop, no click, no other leg Peripheral Edema: bilateral: None - Gastrointestinal General gastrointestinal: no absent bowel sounds, decreased bowel sounds, no distended, no hepatomegaly, no hyperactive bowel sounds, no normal bowel sounds, no organomegaly, no rigid, no scaphoid, soft, no splenomegaly, tenderness, no umbilical hernia, no ventral hernia - Integumentary Integumentary: normal - Neurologic Neurologic: CNII-XII intact - Musculoskeletal Musculoskeletal: strength equal bilaterally - Psychiatric Psychiatric: A&O x's 3, appropriate affect, intact judgment & insight - Labs CBC & Chem 7: 06/17/21 05:35 06/17/21 05:35 Labs: Abnormal Lab Results - Last 24 Hours (Table) 06/17/21 06/17/21 Range/Units 05:35 05:35 WBC 11.13 H (4.50-10.00) X 10*3/uL Hgb 10.5 L (13.0-17.0) g/dL Hct 36.4 L (39.6-50.0) % MCV 75.1 L (80.0-97.0) fL MCH 21.6 L (27.0-32.0) pg MCHC 28.8 L (32.0-37.0) g/dL RDW 17.4 H (11.5-14.5) % Plt Count 449 H (140-440) X 10*3/uL Immature Gran # 0.05 H (0.00-0.04) X 10*3/uL Neutrophils # 8.17 H (1.80-7.70) X 10*3/uL Lymphocytes # 0.67 L (0.90-5.00) X 10*3/uL Monocytes # 2.08 H (0.20-1.00) X 10*3/uL Glucose 115 H (70-110) mg/dL Calcium 8.2 L (8.7-10.3) mg/dL AST 38 H (14-35) U/L Total Protein 5.6 L (6.2-8.2) g/dL Albumin 3.2 L (3.8-4.9) g/dL Albumin/Globulin Ratio 1.33 L (1.60-3.17) g/dL Assessment and Plan Plan: Assessment and Plan (1) Colon adenocarcinoma Current Visit: Yes Status: Acute Priority: High Code(s): C18.9 - MALIGNANT NEOPLASM OF COLON, UNSPECIFIED SNOMED Code(s): 186715964 (2) History of prostate cancer Current Visit: No Status: Chronic Priority: Low Code(s): Z85.46 - PERSONAL HISTORY OF MALIGNANT NEOPLASM OF PROSTATE SNOMED Code(s): 845018576 Plan: Pt s/p extended rt hemicolectomy, path positive for moderately differentiated adenocarcinoma with 12 negative nodes. Pt has f/u with Dr. Melton 07/14/at 2pm. Discussed with family, no chemo recommended at this time. All questions answered. Doctor attests: I performed a history and physical examination of this patient, developed impression and plan of care. Discussed with dictator. I agree with dictators note, documented as a scribe.
[2021-06-17] MEDS: METOPROLOL SUCCINATE (ER) 50 MG TAB.ER.24H PO SCH (21:27)
[2021-06-17] MEDS: ATORVASTATIN 20 MG TAB PO SCH (21:27)
[2021-06-18] MEDS: HEPARIN SODIUM,PORCINE/PF 5,000 UNIT/0.5 ML SYRINGE SQ SCH ×4 (00:44→23:31)
[2021-06-18] MEDS: LACTATED RINGERS 1,000 ML IV SCH ×2 (05:36→20:39)
[2021-06-18] MEDS: PANTOPRAZOLE 40 MG TABLET PO SCH (09:45)
[2021-06-18] MEDS: amLODIPine 10 MG TAB PO SCH (09:45)
[2021-06-18] MEDS: ALVIMOPAN 12 MG CAPSULE PO SCH ×2 (09:45→20:55)
[2021-06-18] MEDS: COLCHICINE 0.6 MG EACH PO SCH (09:46)
[2021-06-18] MEDS: HYDROcodone/APAP 5-325MG 1 EACH TAB PO PRN ×2 (09:51→16:46)
--- NOTE | 2021-06-18 12:37 | P.PN ---
Subjective Progress Note Date: 06/18/21 Patient is postop extended right hemicolectomy for colon cancer. His abdomen is not bothering him. Admits to passing flatus. He is complaining of pain in the right knee with difficulty ambulating. The patient has had this in the past but not as bad. He was started on colchicine and is getting ice packs but hasn't improved. This is causing difficulty with ambulation Objective - Vital Signs Vital signs: Vital Signs Temp 98.6 F 06/18/21 05:00 Pulse 99 06/18/21 08:35 Resp 16 06/18/21 08:35 BP 107/67 06/18/21 05:00 Pulse Ox 92 L 06/18/21 05:00 Intake & Output 06/17/21 06/18/21 06/18/21 18:59 06:59 18:59 Intake Total 1950 1050 Output Total 660 Balance 1290 1050 Weight 82 kg Intake: Intake, IV Titration 900 Amount Lactated Ringers 1,000 ml 900 @ 75 mls/hr IV .[id number] [facility] Rx#:[id number] Oral 1050 1050 Output: Urine 660 Uretheral (Savage) 350 Other: Voiding Method External Catheter External Catheter # Voids 2 6 - Constitutional General appearance: Present: cooperative, no acute distress - Respiratory Respiratory: bilateral: CTA - Cardiovascular Rhythm: regular - Gastrointestinal Gastrointestinal Comment(s): Dressing is intact, with some dried blood General gastrointestinal: Present: decreased bowel sounds, soft - Musculoskeletal Musculoskeletal Comment(s): His right knee has some swelling and is hot to touch - Labs CBC & Chem 7: 06/17/21 05:35 06/17/21 05:35 Assessment and Plan (1) Knee pain, acute Current Visit: Yes Status: Acute Code(s): M25.569 - PAIN IN UNSPECIFIED KNEE SNOMED Code(s): 5830858566 (2) Colon adenocarcinoma Current Visit: Yes Status: Acute Priority: High Code(s): C18.9 - MALIGNANT NEOPLASM OF COLON, UNSPECIFIED SNOMED Code(s): 716195576 Plan: Patient's diet will be increased. The knee is rather hot to touch we'll have an orthopedic consult to see if this is acute gouty arthritis that may respond to steroid injection if it some other cause. This is affecting his ambulation in postop recovery. Progressing slowly
--- NOTE | 2021-06-18 13:49 | XR ---
Right knee. HISTORY: Pain COMPARISON: None. TECHNIQUE: 3 views the right knee were obtained. FINDINGS: The osseous structures are intact and there is no bone contusion or fracture. There is marked joint space narrowing of medial compartment of the knee and mild joint space narrowin g of the lateral compartment There is chondrocalcinosis of all 3 compartments of the knee. There is m ild osteoarthritic change of the patellofemoral compartment. There is a small joint effusion. IMPRESSION: 1. No acute fracture or dislocation. 2. Joint effusion. 3. Chondrocalcinosis and degenerative change of all 3 compartments of the knee, severe in the medial compartment and mild in the patellofemoral compartment and lateral compartment.
--- NOTE | 2021-06-18 15:07 | P.PN ---
Subjective Progress Note Date: 06/18/21 HISTORY OF PRESENT ILLNESS 85-year-old male one of Dr. Grigsby patient with past medical history of prostate cancer, hypertension, hyperlipidemia and chronic anemia was claimed to have history of myelodysplasia. Patient apparently found to have mild iron deficiency anemia referred to see Dr. Melton hematology few month ago. Patient ended up and refer for EGD and colonoscopy which were performed 05/26/2021 finding was consistent with large polyp in the right colon area could not be resected with colonoscopy. Apparently patient was referred to [facility] for possible laparoscopy resection of polyps. Colonoscopy was performed patient found to have total of 5 polyp 2 of them are quite bed large and adhesive to the wall of the colon area could not perform polypectomy with colonoscopy. Patient was brought to the hospital Dr. Ta ended up going for open right sided hemicolectomy Magi today with no major complication. Patient was admitted to the floor no NG tube is placed and patient is under control feeling well overall. 06/15: Patient is seen today on the [facility] floor, postop day #1. Pain is currently controlled, patient has epidural in place a Kamara catheter. Consult has been added for Dr. Melton for evaluation and plan for further treatment. He is currently on a clear liquid diet and tolerating. Patient is maintained on entereg. Patient has been afebrile, heart rate 84, blood pressure 119/65, pulse ox 94% on room air. 06/16: Patient is currently on a clear liquid diet and tolerated with no nausea or vomiting. He has not had a bowel movement. No bowel sounds. Kamara catheter epidural remained in place. Patient has been afebrile, heart rate 78, blood pressure 125/69, pulse ox 92% on room air. Patient is working with PT and OT and did very well with recommendations for home. Repeat blood work was ordered for tomorrow. 06/17: She was seen by anesthesia this morning plan is to discontinue epidural and Kamara catheter today. Patient is not passing gas and has not had a bowel movement. He is complaining of ankle pain that started last evening no and both ankles and worsening. Uric acid came back at 6.8 with patient will be started on colchicine 0.6 mg oral daily. He has been afebrile, heart rate 91, blood pressure 115/63 and pulse ox 93% on room air. Repeat blood work reveals WBC 11.1, hemoglobin 10.5, platelet count 449. Electrolytes and renal function normal. Blood sugar 115. AST 38 otherwise liver function tests are normal. Calcium 8.2. Albumin 3.2. 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 12 mesenteric lymph nodes negative for metastasis. Report discussed with the patient. 06/18, patient still has right knee which he thinks he has gout exacerbation, it is red, and swollen, with redness, on colchicine patient cannot ambulate as much, creatinine is normal at 0.9, we'll going to give few doses of IV ketorolac, for inflammation control, on clear liquid diet, still no appetite, has some nausea, patient has no flat this yet, no bowel movement. Exam, still shows hyperactive bowel sounds, general surgery is following closely the x-ray x-rays, shows joint effusion right side, with chondrocalcinosis, degenerative changes, no compartment of the knee, was severe in nature compartment, and mild patellofemoral, and lateral compartment. We'll consult orthopedic surgery, Dr. Stoddard check uric acid level at 6.8 REVIEW OF SYSTEMS Constitutional: No fever, no chills, no night sweats. No weight change. No weakness, fatigue or lethargy. No daytime sleepiness. EENT: No headache. No blurred vision or double vision, no loss of vision. No loss of Hearing, no ringing in the ears, no dizziness. No nasal drainage or congestion. No epistaxis. No sore throat. Lungs: No shortness of breath, cough, no sputum production. No wheezing. Cardiovascular: No chest pain, no lower extremity edema. No palpitations. No paroxysmal nocturnal dyspnea. No orthopnea. No lightheadedness or dizziness. No syncopal episodes. Abdominal: post right sided hemicolectomy no abdominal pain no nausea vomiting. No bowel movement. Genitourinary: No dysuria, increased frequency, urgency. No urinary retention. Musculoskeletal: No myalgias. No muscle weakness, no gait dysfunction, no frequent falls. No back pain. No neck pain. Integumentary: No wounds, no lesions. No rash or pruritus. No unusual brui sing. No change in hair or nails. Neurologic: No aphasia. No facial droop. No change in mentation. No head injury. No headache. No paralysis. No paresthesia. Psychiatric: No depression. No anxiety. No mood swings. Endocrine: No abnormal blood sugars. No weight change. No excessive sweating or thirst. PHYSICAL EXAMINATION Gen: This is well-developed 85-year-old male. He is resting in bed and appears to be in no acute distress. Epidural remains in place. HEENT: Head is atraumatic, normocephalic. Pupils equal, round. Sclerae is anicteric. NECK: Supple. No JVD. No lymphadenopathy. No thyromegaly. LUNGS: Clear to auscultation. No wheezes or rhonchi. No intercostal retractions. HEART: Regular rate and rhythm. No murmur. ABDOMEN: soft incision in the midline looks fine with slight tenderness around the site no bowel sound was found at the time slight tenderness left lower quadrant area. Kamara catheter draining clear mary ann urine. EXTREMITIES: No pedal edema. No calf tenderness. NEUROLOGICAL: Patient is awake, alert and oriented x3. Cranial nerves 2 through 12 are grossly intact. ASSESSMENT AND PLAN 1 post right sided colectomy candidate to large multi polyp with colon cancer, 06/14. Patient's surgery went successful with no major complication will be waiting for the final pathology as above, patient is very stable hemodynamically. Continue pain management, continue hydration and titrate oral intake gradually. Epidural and kamara to be removed today. 2 large colon polyps: Cancer diagnosed patient had surgery at this point. 3 hypertension: Continue amlodipine 10 mg a day and metoprolol 50 mg daily at bedtime. 4. Right knee pseudogout against gout, with joint effusion, and joint inflammation, symptomatic, on colchicine, start IV ketorolac, with normal creatinine. Consult with Dr. Stoddard, for the joint effusion continue colchicine at this time. Uric acid, 6.8 might need joint fluid analysis, with culture and Gram stain 4 hyperlipidemia: We'll resume atorvastatin 20 mg a day. 5 chronic history of anemia: Mostly iron deficiency with mild symptom of myelodysplasia will repeat CBC tomorrow. 6 history of prostate cancer post surgery has been in remission and doing well. 7 GI prophylaxis: Patient be on pantoprazole. 8 postsurgical ileus prophylaxis: Patient was started on alvimopan 12 mg twice a day. 9 DVT prophylaxis: Patient will be on heparin 5000 units subcutaneous every 8 hours. 10. Possible gout bilat ankles. Patient started on colchine 0.6 mg daily. CODE STATUS: Full code. DISCHARGE PLAN Home possibly over weekend. Objective - Vital Signs Vital signs: Vital Signs Temp 98.1 F 06/18/21 12:30 Pulse 113 H 06/18/21 12:30 Resp 17 06/18/21 12:30 BP 100/64 06/18/21 12:30 Pulse Ox 96 06/18/21 12:30 Intake & Output 06/17/21 06/18/21 06/18/21 18:59 06:59 18:59 Intake Total 1950 1050 Output Total 660 Balance 1290 1050 Weight 82 kg Intake: Intake, IV Titration 900 Amount Lactated Ringers 1,000 ml 900 @ 75 mls/hr IV .[id number] [facility] Rx#:[id number] Oral 1050 1050 Output: Urine 660 Uretheral (Kamara) 350 Other: Voiding Method External Catheter External Catheter # Voids 2 6 - Labs CBC & Chem 7: 06/17/21 05:35 06/17/21 05:35
[2021-06-18] MEDS: KETOROLAC 15 MG/ML 1 ML VIAL IVP SCH ×2 (16:45→23:32)
[2021-06-18] MEDS: METOPROLOL SUCCINATE (ER) 50 MG TAB.ER.24H PO SCH (20:55)
[2021-06-18] MEDS: ATORVASTATIN 20 MG TAB PO SCH (20:55)
[2021-06-18 21:17] VITALS: RESP 16
[2021-06-19] MEDS: KETOROLAC 15 MG/ML 1 ML VIAL IVP SCH ×4 (05:59→23:26)
[2021-06-19] MEDS: amLODIPine 10 MG TAB PO SCH (07:51)
[2021-06-19] MEDS: HEPARIN SODIUM,PORCINE/PF 5,000 UNIT/0.5 ML SYRINGE SQ SCH ×3 (07:52→23:25)
[2021-06-19] MEDS: ALVIMOPAN 12 MG CAPSULE PO SCH (07:52)
[2021-06-19] MEDS: PANTOPRAZOLE 40 MG TABLET PO SCH (07:52)
[2021-06-19] MEDS: COLCHICINE 0.6 MG EACH PO SCH (07:52)
[2021-06-19] MEDS: LACTATED RINGERS 1,000 ML IV SCH ×2 (07:52→21:01)
--- NOTE | 2021-06-19 10:45 | P.CNOR ---
History of Present Illness - HPI Consult date: 06/19/21 History of present illness: This is an 85-year-old male with a past medical history significant for prostate cancer, hypertension, hyperlipidemia and chronic anemia. Patient is status post open right-sided hemicolectomy by Dr. Ta on 06/14/2021. Orthopedics is consulted due to right knee pain. Patient is seen and evaluated at bedside today and states that the day after his surgery he walked up and down the halls without any pain or difficulty. Patient states that the next day he had severe pain in the right knee and was unable to bear weight on the right lower extremity. Patient states that his pain has improved since then and he is able to bear weight on the right lower extremity now. Patient denies any history of gout and states that he has experienced intermittent right knee pain in the past, but nothing severe. Patient has been started on Toradol on colchicine by internal medicine. Patient denies any fever/chills, numbness, weakness, tingling, shortness of breath or chest pain. Review of Systems See HPI. Past Medical History Past Medical History: Cancer, Hyperlipidemia, Hypertension, Osteoarthritis (OA) Additional Past Medical History / Comment(s): recent dx. colon cancer, & myelopr oliferative disorder-sees Dr. Melton who did recent phlebotomy per pt., Prostate cancer 2006, vertigo History of Any Multi-Drug Resistant Organisms: None Reported Past Surgical History: Hernia Repair, Joint Replacement, Prostate Surgery Additional Past Surgical History / Comment(s): Left hip and left knee arthroplasty, bilateral inguinal hernia repair, prostatectomy, bilateral cataract removal and intraocular lens implants, recent EGD & colonoscopy Past Anesthesia/Blood Transfusion Reactions: No Reported Reaction Past Psychological History: No Psychological Hx Reported Smoking Status: Never smoker Past Alcohol Use History: None Reported Past Drug Use History: None Reported - Past Family History Father Family Medical History: COPD Additional Family Medical History / Comment(s): Father at age 76 from a brain hemorrhage. Mother Family Medical History: Liver Disease Additional Family Medical History / Comment(s): Mother at age 82 from liver disease. Brother(s) Family Medical History: Cancer Additional Family Medical History / Comment(s): He has one brother with history of bladder cancer Sister(s) Additional Family Medical History / Comment(s): He has 2 sisters. One from brain aneurysm and one with history of heart problems with the pacemaker. Son(s) Additional Family Medical History / Comment(s): Patient has 3 sons and one daughter with no major medical problems. Medications and Allergies Home Medications Medication Instructions Recorded Confirmed Type Aspirin [Adult Low Dose Aspirin EC] 81 mg PO DAILY 09/25/15 06/14/21 History Atorvastatin [Lipitor] 20 mg PO HS 09/25/15 06/14/21 History Metoprolol Succinate [Toprol XL] 50 mg PO HS 09/25/15 06/14/21 History amLODIPine [Norvasc] 10 mg PO QAM 09/25/15 06/14/21 History Vit C/E/Zn/Coppr/Lutein/Zeaxan 1 tab PO BID 02/23/21 06/14/21 History [Preservision Areds 2 Chew Tab] Allergies Allergy/AdvReac Type Severity Reaction Status Date / Time No Known Allergies Allergy Verified 06/14/21 10:18 Physical Examination Vital signs are stable. Patient is in no acute distress and is alert and oriented 3. On exam of the right knee, there is a mild effusion. There is no tenderness to palpation. There is no erythema or ecchymosis. Patient has full extension of the right knee. Patient has limited active flexion of the right knee to approximately 45 secondary to pain and swelling. Calf is soft and nontender to palpation. Patient has full foot and ankle motion without pain or difficulty. Sensation intact. Neurovascular status and circulatory status are intact. Results X-rays of the right knee are reviewed showing severe arthritic changes and chondrocalcinosis. No fracture or dislocation. - Labs Labs: H & H 06/14/21 06/15/21 06/17/21 Range/Units 12:01 06:43 05:35 Hgb 11.0 L 10.6 L 10.5 L (13.0-17.5) gm/dL Hct 38.2 L 35.9 L 36.4 L (39.0-53.0) % Result Diagrams: 06/17/21 05:35 06/17/21 05:35 Assessment and Plan (1) Osteoarthritis of right knee Current Visit: Yes Status: Acute Code(s): M17.11 - UNILATERAL PRIMARY OSTEOARTHRITIS, RIGHT KNEE SNOMED Code(s): 589186118509390 Plan: 1. X-rays are reviewed and show severe arthritic changes and chondrocalcinosis of the right knee. 2. Discussed the option for aspiration and cortisone injection at bedside, the patient prefers to hold off on this for now because his symptoms are improving. Recommend rest, ice, elevation and compression for the right knee along with continued anti-inflammatories. We'll continue to follow as needed.
--- NOTE | 2021-06-19 12:08 | P.PN ---
Subjective Progress Note Date: 06/19/21 The patient is seen on rounds. He's feeling better today. Less pain in the knee. Tolerating a diet. He had a very loose watery bowel movement this morning. He is passing gas Objective - Vital Signs Vital signs: Vital Signs Temp 98.3 F 06/19/21 05:00 Pulse 72 06/19/21 08:45 Resp 16 06/19/21 08:45 BP 110/74 06/19/21 07:56 Pulse Ox 95 06/19/21 05:00 Intake & Output 06/18/21 06/19/21 06/19/21 18:59 06:59 18:59 Intake Total 240 Output Total 800 Balance -560 Intake: Oral 240 Output: Urine 800 Other: Voiding Method External Catheter External Catheter External Catheter # Bowel Movements 1 - Constitutional General appearance: Present: cooperative, no acute distress - Respiratory Respiratory: bilateral: CTA - Gastrointestinal Gastrointestinal Comment(s): Dressing is intact, clean and dry General gastrointestinal: Present: normal bowel sounds, soft - Labs CBC & Chem 7: 06/17/21 05:35 06/17/21 05:35 Assessment and Plan (1) Knee pain, acute Current Visit: Yes Status: Acute Code(s): M25.569 - PAIN IN UNSPECIFIED KNEE SNOMED Code(s): 4887351322 (2) Colon adenocarcinoma Current Visit: Yes Status: Acute Priority: High Code(s): C18.9 - MALIGNANT NEOPLASM OF COLON, UNSPECIFIED SNOMED Code(s): 115761891 Plan: Increase activity as tolerated. He had pain with the knee but also the feet are feeling weak and unsteady earlier in the week. We'll have physical therapy see him. Hopefully ready for discharge in the next few days
--- NOTE | 2021-06-19 14:52 | P.PN ---
Subjective Progress Note Date: 06/19/21 HISTORY OF PRESENT ILLNESS 85-year-old male one of Dr. Grigsby patient with past medical history of prostate cancer, hypertension, hyperlipidemia and chronic anemia was claimed to have history of myelodysplasia. Patient apparently found to have mild iron deficiency anemia referred to see Dr. Melton hematology few month ago. Patient ended up and refer for EGD and colonoscopy which were performed 05/26/2021 finding was consistent with large polyp in the right colon area could not be resected with colonoscopy. Apparently patient was referred to [facility] for possible laparoscopy resection of polyps. Colonoscopy was performed patient found to have total of 5 polyp 2 of them are quite bed large and adhesive to the wall of the colon area could not perform polypectomy with colonoscopy. Patient was brought to the hospital Dr. Ta ended up going for open right sided hemicolectomy Magi today with no major complication. Patient was admitted to the floor no NG tube is placed and patient is under control feeling well overall. 06/15: Patient is seen today on the [facility] floor, postop day #1. Pain is currently controlled, patient has epidural in place a Kamara catheter. Consult has been added for Dr. Melton for evaluation and plan for further treatment. He is currently on a clear liquid diet and tolerating. Patient is maintained on entereg. Patient has been afebrile, heart rate 84, blood pressure 119/65, pulse ox 94% on room air. 06/16: Patient is currently on a clear liquid diet and tolerated with no nausea or vomiting. He has not had a bowel movement. No bowel sounds. Kamara catheter epidural remained in place. Patient has been afebrile, heart rate 78, blood pressure 125/69, pulse ox 92% on room air. Patient is working with PT and OT and did very well with recommendations for home. Repeat blood work was ordered for tomorrow. 06/17: She was seen by anesthesia this morning plan is to discontinue epidural and Kamara catheter today. Patient is not passing gas and has not had a bowel movement. He is complaining of ankle pain that started last evening no and both ankles and worsening. Uric acid came back at 6.8 with patient will be started on colchicine 0.6 mg oral daily. He has been afebrile, heart rate 91, blood pressure 115/63 and pulse ox 93% on room air. Repeat blood work reveals WBC 11.1, hemoglobin 10.5, platelet count 449. Electrolytes and renal function normal. Blood sugar 115. AST 38 otherwise liver function tests are normal. Calcium 8.2. Albumin 3.2. 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 12 mesenteric lymph nodes negative for metastasis. Report discussed with the patient. 06/18, patient still has right knee which he thinks he has gout exacerbation, it is red, and swollen, with redness, on colchicine patient cannot ambulate as much, creatinine is normal at 0.9, we'll going to give few doses of IV ketorolac, for inflammation control, on clear liquid diet, still no appetite, has some nausea, patient has no flat this yet, no bowel movement. Exam, still shows hyperactive bowel sounds, general surgery is following closely the x-ray x-rays, shows joint effusion right side, with chondrocalcinosis, degenerative changes, no compartment of the knee, was severe in nature compartment, and mild patellofemoral, and lateral compartment. We'll consult orthopedic surgery, Dr. Stoddard check uric acid level at 6.8 06/20: Patient has less pain in the right knee with less effusion less redness, patient is on IV ketorolac, and colchicine, orthopedic has seen him, with offering him arthrocentesis, as the patient is improving, patient refuses option. Patient still needs to mobilize better, continue IV ketorolac, with anticipated discharge over the next 24 hours to home. Patient has 2 family members [id number], that can assist the patient during his recovery. Diet per general surgery REVIEW OF SYSTEMS Constitutional: No fever, no chills, no night sweats. No weight change. No weakness, fatigue or lethargy. No daytime sleepiness. EENT: No headache. No blurred vision or double vision, no loss of vision. No loss of Hearing, no ringing in the ears, no dizziness. No nasal drainage or congestion. No epistaxis. No sore throat. Lungs: No shortness of breath, cough, no sputum production. No wheezing. Cardiovascular: No chest pain, no lower extremity edema. No palpitations. No paroxysmal nocturnal dyspnea. No orthopnea. No lightheadedness or dizziness. No syncopal episodes. Abdominal: post right sided hemicolectomy no abdominal pain no nausea vomiting. No bowel movement. Genitourinary: No dysuria, increased frequency, urgency. No urinary retention. Musculoskeletal: No myalgias. No muscle weakness, no gait dysfunction, no frequent falls. No back pain. No neck pain. Integumentary: No wounds, no lesions. No rash or pruritus. No unusual bruising. No change in hair or nails. Neurologic: No aphasia. No facial droop. No change in mentation. No head injury. No headache. No paralysis. No paresthesia. Psychiatric: No depression. No anxiety. No mood swings. Endocrine: No abnormal blood sugars. No weight change. No excessive sweating or thirst. PHYSICAL EXAMINATION Gen: This is well-developed 85-year-old male. He is resting in bed and appears to be in no acute distress. Epidural remains in place. HEENT: Head is atraumatic, normocephalic. Pupils equal, round. Sclerae is anicteric. NECK: Supple. No JVD. No lymphadenopathy. No thyromegaly. LUNGS: Clear to auscultation. No wheezes or rhonchi. No intercostal re tractions. HEART: Regular rate and rhythm. No murmur. ABDOMEN: soft incision in the midline looks fine with slight tenderness around the site no bowel sound was found at the time slight tenderness left lower quadrant area. Kamara catheter draining clear mary ann urine. EXTREMITIES: No pedal edema. No calf tenderness. NEUROLOGICAL: Patient is awake, alert and oriented x3. Cranial nerves 2 through 12 are grossly intact. ASSESSMENT AND PLAN 1 post right sided colectomy candidate to large multi polyp with colon cancer, 06/14. Patient's surgery went successful with no major complication will be waiting for the final pathology as above, patient is very stable hemodynamica lly. Continue pain management, continue hydration and titrate oral intake gradually. Epidural and kamara to be removed today. 2 large colon polyps: Cancer diagnosed patient had surgery at this point. 3 hypertension: Continue amlodipine 10 mg a day and metoprolol 50 mg daily at bedtime. 4. Right knee pseudogout against gout, with joint effusion, and joint inflammation, symptomatic, on colchicine, start IV ketorolac, with normal creatinine. Consult with Dr. Stoddard, for the joint effusion continue colchicine at this time. Uric acid, 6.8 might need joint fluid analysis, with culture and Gram stain 4 hyperlipidemia: We'll resume atorvastatin 20 mg a day. 5 chronic history of anemia: Mostly iron deficiency with mild symptom of myelodysplasia will repeat CBC tomorrow. 6 history of prostate cancer post surgery has been in remission and doing well. 7 GI prophylaxis: Patient be on pantoprazole. 8 postsurgical ileus prophylaxis: Patient was started on alvimopan 12 mg twice a day. 9 DVT prophylaxis: Patient will be on heparin 5000 units subcutaneous every 8 hours. 10. Possible gout bilat ankles. Patient started on colchine 0.6 mg daily. CODE STATUS: Full code. DISCHARGE PLAN 24 hours to home Objective - Vital Signs Vital signs: Vital Signs Temp 98.3 F 06/19/21 05:00 Pulse 72 06/19/21 08:45 Resp 16 06/19/21 08:45 BP 110/74 06/19/21 07:56 Pulse Ox 95 06/19/21 05:00 Intake & Output 06/18/21 06/19/21 06/19/21 18:59 06:59 18:59 Intake Total 240 Output Total 800 Balance -560 Intake: Oral 240 Output: Urine 800 Other: Voiding Method External Catheter External Catheter External Catheter # Bowel Movements 1 - Labs CBC & Chem 7: 06/17/21 05:35 06/17/21 05:35
[2021-06-19] MEDS: ATORVASTATIN 20 MG TAB PO SCH (21:01)
[2021-06-19] MEDS: METOPROLOL SUCCINATE (ER) 50 MG TAB.ER.24H PO SCH (21:01)
[2021-06-20] MEDS: KETOROLAC 15 MG/ML 1 ML VIAL IVP SCH ×2 (05:47→14:13)
[2021-06-20] MEDS: amLODIPine 10 MG TAB PO SCH (08:27)
[2021-06-20] MEDS: HEPARIN SODIUM,PORCINE/PF 5,000 UNIT/0.5 ML SYRINGE SQ SCH (08:27)
[2021-06-20] MEDS: COLCHICINE 0.6 MG EACH PO SCH (08:28)
[2021-06-20] MEDS: HYDROcodone/APAP 5-325MG 1 EACH TAB PO PRN (08:28)
[2021-06-20] MEDS: PANTOPRAZOLE 40 MG TABLET PO SCH (08:28)
--- NOTE | 2021-06-20 09:42 | P.PN ---
Subjective Progress Note Date: 06/20/21 HISTORY OF PRESENT ILLNESS 85-year-old male one of Dr. Grigsby patient with past medical history of prostate cancer, hypertension, hyperlipidemia and chronic anemia was claimed to have history of myelodysplasia. Patient apparently found to have mild iron deficiency anemia referred to see Dr. Melton hematology few month ago. Patient ended up and refer for EGD and colonoscopy which were performed 05/26/2021 finding was consistent with large polyp in the right colon area could not be resected with colonoscopy. Apparently patient was referred to [facility] for possible laparoscopy resection of polyps. Colonoscopy was performed patient found to have total of 5 polyp 2 of them are quite bed large and adhesive to the wall of the colon area could not perform polypectomy with colonoscopy. Patient was brought to the hospital Dr. Ta ended up going for open right sided hemicolectomy Magi today with no major complication. Patient was admitted to the floor no NG tube is placed and patient is under control feeling well overall. 06/15: Patient is seen today on the [facility] floor, postop day #1. Pain is currently controlled, patient has epidural in place a Savage catheter. Consult has been added for Dr. Melton for evaluation and plan for further treatment. He is currently on a clear liquid diet and tolerating. Patient is maintained on entereg. Patient has been afebrile, heart rate 84, blood pressure 119/65, pulse ox 94% on room air. 06/16: Patient is currently on a clear liquid diet and tolerated with no nausea or vomiting. He has not had a bowel movement. No bowel sounds. Savage catheter epidural remained in place. Patient has been afebrile, heart rate 78, blood pressure 125/69, pulse ox 92% on room air. Patient is working with PT and OT and did very well with recommendations for home. Repeat blood work was ordered for tomorrow. 06/17: She was seen by anesthesia this morning plan is to discontinue epidural and Savage catheter today. Patient is not passing gas and has not had a bowel movement. He is complaining of ankle pain that started last evening no and both ankles and worsening. Uric acid came back at 6.8 with patient will be started on colchicine 0.6 mg oral daily. He has been afebrile, heart rate 91, blood pressure 115/63 and pulse ox 93% on room air. Repeat blood work reveals WBC 11.1, hemoglobin 10.5, platelet count 449. Electrolytes and renal function normal. Blood sugar 115. AST 38 otherwise liver function tests are normal. Calcium 8.2. Albumin 3.2. 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 12 mesenteric lymph nodes negative for metastasis. Report discussed with the patient. 06/18, patient still has right knee which he thinks he has gout exacerbation, it is red, and swollen, with redness, on colchicine patient cannot ambulate as much, creatinine is normal at 0.9, we'll going to give few doses of IV ketorolac, for inflammation control, on clear liquid diet, still no appetite, has some nausea, patient has no flat this yet, no bowel movement. Exam, still shows hyperactive bowel sounds, general surgery is following closely the x-ray x-rays, shows joint effusion right side, with chondrocalcinosis, degenerative changes, no compartment of the knee, was severe in nature compartment, and mild patellofemoral, and lateral compartment. We'll consult orthopedic surgery, Dr. Stoddard check uric acid level at 6.8 06/19: Patient has less pain in the right knee with less effusion less redness, patient is on IV ketorolac, and colchicine, orthopedic has seen him, with offering him arthrocentesis, as the patient is improving, patient refuses option. Patient still needs to mobilize better, continue IV ketorolac, with anticipated discharge over the next 24 hours to home. Patient has 2 family members [id number], that can assist the patient during his recovery. Diet per general surgery 06/20: Patient has condom cath in place. Right knee has less edema. Dorsalis he is eating of full regular diet and tolerating with no nausea or vomiting. He states he had a bowel movement couple days ago. Patient has been afebrile, heart rate 113, blood pressure 90/59, pulse ox 95% on room air. Patient states he expects to go home today. Condom cath to be removed and patient to be ambulated in the hallway and sure he is safe for discharge home. Medication reconciliation completed for anticipated discharge. REVIEW OF SYSTEMS Constitutional: No fever, no chills, no night sweats. No weight change. No weakness, fatigue or lethargy. No daytime sleepiness. EENT: No headache. No blurred vision or double vision, no loss of vision. No loss of Hearing, no ringing in the ears, no dizziness. No nasal drainage or congestion. No epistaxis. No sore throat. Lungs: No shortness of breath, cough, no sputum production. No wheezing. Cardiovascular: No chest pain, no lower extremity edema. No palpitations. No paroxysmal nocturnal dyspnea. No orthopnea. No lightheadedness or dizziness. No syncopal episodes. Abdominal: post right sided hemicolectomy no abdominal pain no nausea vomiting. No bowel movement. Genitourinary: No dysuria, increased frequency, urgency. No urinary retention. Musculoskeletal: No myalgias. No muscle weakness, no gait dysfunction, no frequent falls. No back pain. No neck pain. Reports right knee pain, bilateral ankle pain Integumentary: No wounds, no lesions. No rash or pruritus. No unusual bruising. No change in hair or nails. Neurologic: No aphasia. No facial droop. No change in mentation. No head injury. No headache. No paralysis. No paresthesia. Psychiatric: No depression. No anxiety. No mood swings. Endocrine: No abnormal blood sugars. No weight change. No excessive sweating or thirst. PHYSICAL EXAMINATION Gen: This is well-developed 85-year-old male. He is resting in bed and appears to be in no acute distress. HEENT: Head is atraumatic, normocephalic. Pupils equal, round. Sclerae is anict rosalina. NECK: Supple. No JVD. No lymphadenopathy. No thyromegaly. LUNGS: Clear to auscultation. No wheezes or rhonchi. No intercostal retractions. HEART: Regular rate and rhythm. No murmur. ABDOMEN: soft incision in the midline looks fine with slight tenderness around the site no bowel sound was found at the time slight tenderness left lower quadrant area. Condom catheter draining clear mary ann urine. EXTREMITIES: No pedal edema. No calf tenderness. Edema to right knee. NEUROLOGICAL: Patient is awake, alert and oriented x3. Cranial nerves 2 through 12 are grossly intact. ASSESSMENT AND PLAN 1 post right sided colectomy candidate to large multi polyp with colon cancer, 06/14. Patient's surgery went successful with no major complication will be waiting for the final pathology as above, patient is very stable hemodynamically. Continue pain management, continue hydration and titrate oral intake gradually. Continue regular diet 2 large colon polyps: Cancer diagnosed patient had surgery at this point. 3 hypertension: Continue amlodipine 10 mg a day and metoprolol 50 mg daily at bedtime. 4. Right knee pseudogout against gout, with joint effusion, and joint inflammation, symptomatic, on colchicine, start IV ketorolac, with normal creatinine. Consult with OA, for the joint effusion continue colchicine at this time. Uric acid, 6.8 might need joint fluid analysis, with culture and Gram stain 4 hyperlipidemia: We'll resume atorvastatin 20 mg a day. 5 chronic history of anemia: Mostly iron deficiency with mild symptom of myelodysplasia. 6 history of prostate cancer post surgery has been in remission and doing well. 7 GI prophylaxis: Patient be on pantoprazole. 8 postsurgical ileus prophylaxis: Patient was started on alvimopan 12 mg twice a day. 9 DVT prophylaxis: Patient will be on heparin 5000 units subcutaneous every 8 hours. 10. Possible gout bilat ankles. Patient started on colchine 0.6 mg daily. 11. RIght knee OA. CODE STATUS: Full code. DISCHARGE PLAN Home Impression and plan of care have been directed as dictated by the signing physician. Rashmi Tovar nurse practitioner acting as scribe for signing physician. Objective - Vital Signs Vital signs: Vital Signs Temp 98.1 F 06/20/21 06:02 Pulse 113 H 06/20/21 06:02 Resp 16 06/20/21 06:02 BP 94/59 06/20/21 06:02 Pulse Ox 95 06/20/21 06:02 Intake & Output 06/19/21 06/20/21 06/20/21 18:59 06:59 18:59 Intake Total 180 20 Balance 180 20 Intake: IV 20 saline flush 20 Oral 180 Other: Voiding Method External Catheter External Catheter # Bowel Movements 1 - Labs CBC & Chem 7: 06/17/21 05:35 06/17/21 05:35
--- NOTE | 2021-06-20 11:12 | P.PN ---
Subjective Progress Note Date: 06/20/21 This is an 85-year-old male with a past medical history significant for prostate cancer, hypertension, hyperlipidemia and chronic anemia. Patient is status post open right-sided hemicolectomy by Dr. Ta on 06/14/2021. Orthopedics is following for right knee pain. Patient states that he has been able to ambulate and his knee pain continues to improve. Patient denies any new complaints today. Objective - Vital Signs Vital signs: Vital Signs Temp 98.1 F 06/20/21 06:02 Pulse 113 H 06/20/21 06:02 Resp 16 06/20/21 06:02 BP 94/59 06/20/21 06:02 Pulse Ox 95 06/20/21 06:02 Intake & Output 06/19/21 06/20/21 06/20/21 18:59 06:59 18:59 Intake Total 180 20 Balance 180 20 Intake: IV 20 saline flush 20 Oral 180 Other: Voiding Method External Catheter External Catheter External Catheter # Bowel Movements 1 - Exam Vital signs are stable. Patient is in no acute distress and is alert and oriented 3. On exam of the right knee, there is a mild effusion. There is no tenderness to palpation. There is no erythema or ecchymosis. Patient has full extension of the right knee. Patient has active flexion of the right knee to 90 without pain or difficulty. Calf is soft and nontender to palpation. Patient has full foot and ankle motion without pain or difficulty. Sensation intact. Neurovascular status and circulatory status are intact. - Labs CBC & Chem 7: 06/17/21 05:35 06/17/21 05:35 Assessment and Plan (1) Osteoarthritis of right knee Current Visit: Yes Status: Acute Code(s): M17.11 - UNILATERAL PRIMARY OSTEOARTHRITIS, RIGHT KNEE SNOMED Code(s): 143862338511570 Plan: 1. X-rays are reviewed and show severe arthritic changes and chondrocalcinosis of the right knee. 2. Patient's symptoms of knee pain continue to improve. Recommend rest, ice, elevation and compression for the right knee along with continued anti- inflammatories. Patient may follow up as an outpatient on an as-needed basis.
--- NOTE | 2021-06-20 12:58 | P.DS ---
Providers Date of admission: 06/14/21 10:00 Attending physician: Rojelio Ta DO Consults: 06/14/21 14:23 Consult Physician Routine Consulting Provider: Andrea Melton Consult Reason/Comments: Colon CA, pt known to you Do you want consulting provider notified?: Yes 06/14/21 14:24 Consult Physician Routine Consulting Provider: Cm Lopez Consult Reason/Comments: Med mgmt Do you want consulting provider notified?: Yes 06/18/21 12:33 Consult Physician Routine Consulting Provider: Javier Avendaño Consult Reason/Comments: right knee pain and swelling Do you want consulting provider notified?: Yes Primary care physician: Amanda Saldana Hospital Course: 85-year-old male presented for 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 Postoperatively, patient was maintained with epidural and Savage catheter for pain control. He improved throughout his admission and began having bowel function. His diet was advanced as tolerated after bowel function began. Pain was well controlled after epidural was removed. The patient did have some right knee soreness and right ankle soreness and was diagnosed with gout exacerbation. He is followed by orthopedic surgery and on discharge there is significant improvement in his ambulation. He is requesting home care for needs for himself and his for caretaking. Procedures: Right hemicolectomy Patient Condition at Discharge: Fair Plan - Discharge Summary Discharge Rx Participant: Yes New Discharge Prescriptions: New Colchicine [Colcrys] 0.6 mg PO DAILY #30 each HYDROcodone/APAP 5-325MG [[place] 5-325] 1 tab PO Q6HR PRN 3 Days #12 tab PRN Reason: Pain Continue amLODIPine [Norvasc] 10 mg PO QAM Metoprolol Succinate [Toprol XL] 50 mg PO HS Atorvastatin [Lipitor] 20 mg PO HS Aspirin [Adult Low Dose Aspirin EC] 81 mg PO DAILY Vit C/E/Zn/Coppr/Lutein/Zeaxan [Preservision Areds 2 Chew Tab] 1 tab PO BID Discharge Medication List Aspirin [Adult Low Dose Aspirin EC] 81 mg PO DAILY 09/25/15 [History] Atorvastatin [Lipitor] 20 mg PO HS 09/25/15 [History] Metoprolol Succinate [Toprol XL] 50 mg PO HS 09/25/15 [History] amLODIPine [Norvasc] 10 mg PO QAM 09/25/15 [History] Vit C/E/Zn/Coppr/Lutein/Zeaxan [Preservision Areds 2 Chew Tab] 1 tab PO BID 02/23/21 [History] Colchicine [Colcrys] 0.6 mg PO DAILY #30 each 06/20/21 [Rx] HYDROcodone/APAP 5-325MG [[place] 5-325] 1 tab PO Q6HR PRN 3 Days #12 tab 06/20/21 [Rx] Follow up Appointment(s)/Referral(s): Andrea Melton MD [STAFF PHYSICIAN] - 07/14/21 2:00 pm Amanda Saldana DO [Primary Care Provider] - 1 Week Rojelio Ta DO [Doctor of Osteopathic Medicine] - 10 Days Javier Avendaño MD [Medical Doctor] - As Needed Patient Instructions/Handouts: Colectomy (DC), Colectomy Diet (DC) Activity/Diet/Wound Care/Special Instructions: Okay to shower, do not scrub on incision, pat dry Take pain medication as necessary Discharge Disposition: HOME WITH HOME HEALTH SERVICES
[2021-06-20] MEDS: LACTATED RINGERS 1,000 ML IV SCH (14:13)
[2021-06-20 14:49] VITALS: BP 108/68; PULSE 89; TEMP 97.6
== END 2021-06-20 16:29 | disposition home or self-care (01) | DRG 331 ==
LOC: 2ORMAIN 10:00 → 5NMEDONC 13:56
PROVIDERS: ADMIT Surgery; ATTEND Surgery
PROC: 0DTF0ZZ Resection of Right Large Intestine, Open Approach (ICD-10-PCS; principal; 2021-06-14 11:30)
DX: C18.2 Malignant neoplasm of ascending colon (principal); D46.9 Myelodysplastic syndrome, unspecified; D63.8 Anemia in other chronic diseases classified elsewhere; E78.5 Hyperlipidemia, unspecified; I10 Essential (primary) hypertension; D50.9 Iron deficiency anemia, unspecified; K76.9 Liver disease, unspecified; L30.9 Dermatitis, unspecified; M10.9 Gout, unspecified; M11.261 Other chondrocalcinosis, right knee; R42 Dizziness and giddiness; M17.11 Unilateral primary osteoarthritis, right knee; Z79.82 Long term (current) use of aspirin; Z79.899 Other long term (current) drug therapy; Z80.0 Family history of malignant neoplasm of digestive organs; Z80.52 Family history of malignant neoplasm of bladder; Z82.5 Family history of asthma and other chronic lower respiratory diseases; Z85.46 Personal history of malignant neoplasm of prostate; Z87.19 Personal history of other diseases of the digestive system; Z87.891 Personal history of nicotine dependence; Z96.652 Presence of left artificial knee joint; Z98.890 Other specified postprocedural states; Z98.42 Cataract extraction status, left eye; Z98.41 Cataract extraction status, right eye; Z96.1 Presence of intraocular lens; Z90.79 Acquired absence of other genital organ(s); Z28.310 Unvaccinated for COVID-19
CPT/HCPCS: 80051; 80053; 84550; 85025; 85027; 86850; 86900; 86901; 88309